=== PATIENT | female | born 1965 | race Caucasian/White ===

== ENCOUNTER 2021-06-12 12:33 | Inpatient (IN) | payer MEDICARE, MEDICAID, SELFPAY ==
--- NOTE | ~2021-06-12 | XR_ITS ---
EXAMINATION: XR CHEST CLINICAL INFORMATION: Post central line placement COMPARISON: Previous chest x-ray from earlier the same day TECHNIQUE: Frontal view of the chest was obtained. FINDINGS: The cardiac and mediastinal contours are stable. There is a new right jugular line with tip projecting over the SVC. There is no pneumothorax. The lungs are clear. There is no pleural effusion. There is old trauma to the right posterior fifth and sixth ribs. XR/XR chest 1V IMPRESSION: Right jugular line projects over SVC. No pneumothorax.
--- NOTE | ~2021-06-12 | MR_ITS ---
EXAMINATION: MRI OF THE BRAIN WITHOUT CONTRAST CLINICAL INFORMATION: CVA. COMPARISON: CTA of the head and neck 06/12/2021. TECHNIQUE: MRI of the brain was obtained using routine sequences without contrast. FINDINGS: No diffusion abnormalities are identified to suggest an acute or subacute infarct. No mass effect or midline shift is seen. The ventricles and sulci appear normal. Brain parenchymal signal is unremarkable. No extra-axial fluid collections are seen. The brainstem appears normal. No pathologic magnetic susceptibility artifact is identified on the gradient refocused acquisition. The cerebellar tonsillar tips extend down to the level of the foramen magnum, but have normal contours. The major intracranial flow-voids at the level of the [place] are preserved. The dural venous sinus flow-voids are maintained. The mastoid air cells are well-aerated. There is a small retention cysts in the inferior left maxillary sinus. There is mild there is a posterior thickening the anterior ethmoid sinuses bilaterally. MR/MR head/brain wo con IMPRESSION: 1. There are no acute bleeds or infarcts, and no masses are demonstrated.
--- NOTE | ~2021-06-12 | CT_ITS ---
CT ANGIOGRAM NECK WITH CONTRAST CT ANGIOGRAM BRAIN WITH CONTRAST CLINICAL INFORMATION: Right-sided weakness. COMPARISON: Head CT 06/12/2021. TECHNIQUE: Test bolus sequences followed by intravenous administration 70 mL of Omnipaque 350. Helical imaging was performed in the axial plane from the thoracic inlet to the skull vertex. Delayed postcontrast imaging of the head was also performed. The data was processed at the nuclear medicine chief technologist workstation for generation of MIP sequences. Angled MIPs and volume rendered reformatted images were also generated at an offline 3D workstation under concurrent supervision. Stenoses are assessed in accordance with NASCET criteria unless otherwise indicated. This CT examination was performed using dose optimization techniques as appropriate, variously including the following: *Automated exposure control *Adjustment of mA and/or kV according to patient size (this includes techniques or standardized protocols for targeted exams where dose is matched to indication/reason for exam; i.e. extremities or head) *Use of iterative reconstruction technique FINDINGS: BRAIN: There is a suspected acute infarct within the left ventral tenzin best seen on image 44 of series 5 that would be better assessed with MRI. No large territorial infarcts. [There is no intracranial hemorrhage, hydrocephalus, extra-axial surface collection, midline shift, or other herniation pattern. Wiggins to white matter differentiation is diffusely maintained without evidence of an evolved acute territorial infarct. The basilar cisterns are preserved. No significant soft tissue abnormality. No acute osseous abnormality. The paranasal sinuses and the mastoid air cells are well aerated.] CERVICAL SOFT TISSUES AND LUNG APICES: [Old healed posterior right fifth rib fracture. Imaged lungs are clear. There is cervical spondylosis. No significant soft tissue findings within the neck. Partially imaged right IJ venous catheter. NECK CTA: [There is a classic 3 vessel configuration of the aortic arch. Proximal arch vessels are non-stenotic. The vertebral arteries are codominant. No significant ostial stenosis is visualized on either side. Both vertebral arteries are widely patent throughout their extracranial cervical course. Both common carotid arteries are normal in course and caliber.] There is lipid rich and calcific atherosclerotic plaque involving the proximal right internal carotid artery with a few shallow penetrating atherosclerotic ulcers. Less than 50% stenosis. Lipid rich and calcific atherosclerotic plaque result in a less than 50% stenosis of the proximal left cervical ICA. Cervical internal carotid arteries remain widely patent. BRAIN CTA: [There is normal opacification of major intracranial arteries. No focal flow-limiting stenosis nor discrete proximal large artery occlusion. No aneurysm. Timing of the contrast bolus allows assessment of the major dural venous sinuses, which all opacify normally] CT/CT angio head neck stroke IMPRESSION: - There is a suspected acute infarct within the left ventral tenzin best seen on image 44 of series 5 that would be better assessed with MRI. No large territorial infarcts and no intracranial hemorrhage. - No acute arterial occlusions and no significant arterial stenoses within the head or neck. There are a few penetrating atherosclerotic ulcers involving the right carotid bulb. Findings discussed with Dr. Munoz at 4:37 PM on 06/12/2021.
--- NOTE | ~2021-06-12 | CT_ITS ---
EXAMINATION: CT HEAD WITHOUT CONTRAST (STROKE PROTOCOL) CLINICAL INFORMATION: Stroke protocol. Right-sided defect COMPARISON: November 14, 2010 TECHNIQUE: Contiguous axial imaging was performed from the skull base to vertex without intravenous administration of contrast. This CT examination was performed using dose optimization techniques as appropriate, variously including the following: *Automated exposure control *Adjustment of mA and/or kV according to patient size (this includes techniques or standardized protocols for targeted exams where dose is matched to indication/reason for exam; i.e. extremities or head) *Use of iterative reconstruction technique DLP: 768 mGy-cm FINDINGS: There is no intracranial hemorrhage, hematoma, or extra-axial fluid collection. The ventricles are normal in size. There is no hydrocephalus, edema, or mass effect. The plata-white matter differentiation appears symmetric. There is no acute infarct or mass lesion. The calvarium appears intact. There is no pneumocephalus or orbital emphysema. The visualized sinuses and middle ears and mastoid air cells show no significant mucosal thickening. There are no air-fluid levels. CT/CT head for stroke IMPRESSION: No acute intracranial pathology. This critical result was discussed with Bernice Morales at 1420 p.m. hours on June 12, 2021. It was ascertained that the content and urgency of the report was understood at the time of direct communication.
--- NOTE | ~2021-06-12 | XR_ITS ---
EXAMINATION: XR CHEST CLINICAL INFORMATION: Stroke symptoms COMPARISON: None TECHNIQUE: Frontal view of the chest was obtained. FINDINGS: The lungs are well-expanded but clear. The heart size and pulmonary vascularity is normal. There are healed rib fractures right posterior fifth and sixth ribs. No other bony abnormality seen. The soft tissues are normal. XR/XR chest 1V IMPRESSION: No acute cardiopulmonary process seen.
--- NOTE | 2021-06-12 12:38 | PC.NURSE ---
charge nurse contacted and made aware of patient condition and patient's last known well time. awaiting bed to be cleared
[2021-06-12 12:39] VITALS: BP 153/112; PULSE 130; RESP 19; TEMP 36.9; O2SAT 98; BMI 33.7
--- NOTE | 2021-06-12 12:46 | ECG_ITS ---
Test Reason : stroke symptoms Blood Pressure : / mmHG Vent. Rate : 078 BPM Atrial Rate : 078 BPM P-R Int : 158 ms QRS Dur : 078 ms QT Int : 446 ms P-R-T Axes : 040 022 066 degrees QTc Int : 508 ms Normal sinus rhythm ST & T wave abnormality, consider anterior ischemia Prolonged QT Abnormal ECG When compared with ECG of 25-APR-2011 08:12, ST now depressed in Anterior leads Nonspecific T wave abnormality no longer evident in Inferior leads T wave inversion more evident in Anterior leads Referred By: Bernice Morales Electronically Signed By:ELPIDIO MORALES MD
--- NOTE | 2021-06-12 13:04 | ED.NEUROSD ---
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 Onset (ago): day(s) Location: right arm and right leg Severity: moderate Quality: weak and numb Context: sudden onset Associated symptoms: weakness Related Data Home Medications Medication Instructions Recorded Confirmed No Known Home Meds 06/12/21 06/12/21 Allergies Allergy/AdvReac Type Severity Reaction Status Date / Time Penicillins Allergy Severe THROAT Unverified 12/08/19 15:26 SWELLS, RASH amoxicillin Allergy Mild RASH Unverified 12/08/19 15:26 morphine [MORPHINE] Allergy Unknown HEADACHES Unverified 12/08/19 15:26 penicillin V Allergy Unknown facial Unverified 11/03/18 00:00 swelling Review of Systems Constitutional: Constitutional: Reports no additional constitutional complaints Eyes: Eyes: Reports no additional eye complaints ENT: Denies dizziness Cardiovascular: Cardiovascular: Reports no additional cardiovascular complaints Respiratory: Respiratory: Reports as per HPI Gastrointestinal: Gastrointestinal: Reports no additional gastrointestinal complaints Genitourinary: Genitourinary: Reports no additional female genitourinary complaints Musculoskeletal: Musculoskeletal: Reports no additional musculoskeletal complaints Integumentary/Breasts: Skin/Breast: Denies rash Neurologic: Reports system reviewed and no additional complaints, except as documented, Denies dizziness and Denies Sensory deficit (Neuro) Psychiatric: Psychiatric: Denies anxiety [facility] Social History Social History (Updated 06/12/21 @ 17:33 by Eduin Rodriguez MD) Household Members: Spouse Housing: House Do you presently have visiting nurse or other home services: No Alcohol intake: former Patient Tobacco Use Status: Current everyday Tobacco user Tobacco use type: Cigarette Cigarettes Per Day: 2 Second Hand Smoke Exposure: No Physical Exam Vital Signs: Vital Signs: Last Vital Signs Temp 98.7 F 06/12/21 17:30 Pulse 80 06/12/21 17:30 Resp 16 06/12/21 17:30 BP 154/91 H 06/12/21 17:30 Pulse Ox 94 06/12/21 17:30 BMI result Body Mass Index 33.7 Const: General: healthy appearing Nutritional Appearance: average body habitus Orientation/consciousness: oriented to person and patient oriented x3 Limitations: no limitations HEENT: Head: Yes normal to inspection Ears: external ears normal General nose exam: Normal external nose present Mouth: Normal oral and palatal mucosa present and oropharynx normal Throat: Yes posterior oropharynx normal Eyes: General: appearance normal, both eyes and all related structures Neck: Other: supple Neck: Yes normal visual inspection Chest: Chest palpation & inspection: normal inspection of the chest Resp: Auscultation: clear to auscultation bilaterally Cardio: Jugular venous distension: no JVD Rate: regular rate Rhythm: regular rhythm Heart sounds: S1 normal heart sound present and S2 normal heart sound present GI: Inspection: Yes normal to inspection Palpation (GI): Soft to palpation, nontender and No hepatosplenomegaly present Auscultation: normal bowel sounds : General: Yes no CVA tenderness Back/Spine/Pelvis: Back: no CVA tenderness Skin: General skin exam: no rashes or lesions noted Neuro: Other: right facial, right arm with drift, right leg with drift General: oriented to person and patient oriented x3 Sensory Exam: No Sensory deficit (Neuro) Extrem: General: Yes normal to inspection Psych: Appearance: grossly normal Course Reevaluation(s) Reevaluation #1: Patient with signs and symptoms of stroke, CTA consistent with pontine infarct, EKG shows anterior ischemia, Dr Bah consulted bedside echo complete will admit to telemetry Procedures Procedure Narrative Procedure Narrative: ultrasound peripheral 18g IV placed left briachail Central Line Placement Right IJ: Additional Comments: Proper hand hygiene, cap, gown and sterile gloves place worn. Patient prepped and draped in sterile fashion, 1% lidocaine used for anesthesia, sterile US cover used, central line placed using US. Central line 16cm at the neck. Sutured in place MDM - Neuro Symptoms/Deficit Lab Data Result diagrams: 06/12/21 13:05 06/12/21 15:49 Labs: Lab Results 06/12/21 06/12/21 06/12/21 Range/Units 11:00 12:49 13:05 WBC 7.6 (4.8-10.8) X10*3/uL RBC 4.90 (4.20-5.50) X10*6/uL Hgb 16.3 H (12.0-16.0) g/dl Hct 47.7 H (37.0-47.0) % MCV 97.3 (80.0-98.0) fL MCH 33.3 H (27.0-33.0) pg MCHC 34.2 (31.0-35.0) g/dl RDW 12.2 (11.0-16.0) % Plt Count 135 L (160-400) X10*3/uL MPV 11.1 (9.4-12.3) fL Immature Gran % (Auto) 0.3 (0.0-0.4) % Neut % (Auto) 60.5 (45-73) % Lymph % (Auto) 27.0 (20-40) % [place] % (Auto) 9.0 (2-11) % Eos % (Auto) 2.8 (0-4) % Baso % (Auto) 0.4 (0-2) % Lymph # (Auto) 2.0 (1.2-4.9) X10*3/uL [place] # (Auto) 0.7 (0.1-1.2) X10*3/uL Eos # (Auto) 0.2 (0.0-0.4) X10*3/uL Baso # (Auto) 0.0 (0.0-0.2) X10*3/uL Abs Immat Gran (auto) 0.02 (0.00-0.03) X10*3/uL Absolute Neuts (auto) 4.6 (2.0-8.3) x10*3/uL Absolute Nucleated RBC 0.000 (0.0-0.012) X10*3/uL Nucleated RBC % (auto) 0.0 (0.0-0.2) /100WBC Smear Tech's Comments VERIFIED PT (9.9-13.0) SEC INR (0.9-1.1) APTT (24.1-38.0) SEC Sodium (135-145) mmol/L Potassium (3.3-5.1) mmol/L Chloride (96-108) mmol/L Carbon Dioxide (22-29) mmol/L Anion Gap (12-20) BUN (9-16) mg/dL Creatinine (0.5-1.4) mg/dL Estim Creat Clear Calc Estimated GFR Random Glucose (60-115) mg/dL Calcium (8.4-10.2) mg/dL Magnesium (1.6-2.6) mg/dL Total Bilirubin (0.0-1.0) mg/dL Direct Bilirubin (0.0-0.5) mg/dL AST (5-31) U/L ALT (0-31) U/L Alkaline Phosphatase (39-117) U/L Troponin I High Sens (<3.5-17.0) ng/L Total Protein (6.5-8.0) g/dL Albumin (3.5-5.0) g/dL TSH (0.32-4.0) uIU/mL Urine Color YELLOW Urine Appearance CLEAR Urine pH 5.5 (5.0-8.0) Ur Specific [place] >= 1.030 H (1.005-1.025) Urine Protein 2+ H (NEG-TRACE) MG/DL Urine Glucose (UA) NEG (NEG) MG/DL Urine Ketones NEG (NEG) MG/DL Urine Blood NEG (NEG) Urine Nitrite NEG (NEG) Ur Leukocyte Esterase NEG (NEG) Urine RBC 0-2 (0) /HPF Urine WBC 0-2 (0-4) /HPF Ur Squamous Epith Cells 1+ /LPF Urine Bacteria NONE /LPF COVID-19 (ASHLEE) Negative (Negative) COVID-19 Clin Com See Note 06/12/21 06/12/21 06/12/21 Range/Units 13:05 13:05 15:49 WBC (4.8-10.8) X10*3/uL RBC (4.20-5.50) X10*6/uL Hgb (12.0-16.0) g/dl Hct (37.0-47.0) % MCV (80.0-98.0) fL MCH (27.0-33.0) pg MCHC (31.0-35.0) g/dl RDW (11.0-16.0) % Plt Count (160-400) X10*3/uL MPV (9.4-12.3) fL Immature Gran % (Auto) (0.0-0.4) % Neut % (Auto) (45-73) % Lymph % (Auto) (20-40) % [place] % (Auto) (2-11) % Eos % (Auto) (0-4) % Baso % (Auto) (0-2) % Lymph # (Auto) (1.2-4.9) X10*3/uL [place] # (Auto) (0.1-1.2) X10*3/uL Eos # (Auto) (0.0-0.4) X10*3/uL Baso # (Auto) (0.0-0.2) X10*3/uL Abs Immat Gran (auto) (0.00-0.03) X10*3/uL Absolute Neuts (auto) (2.0-8.3) x10*3/uL Absolute Nucleated RBC (0.0-0.012) X10*3/uL Nucleated RBC % (auto) (0.0-0.2) /100WBC Smear Tech's Comments PT 13.9 H (9.9-13.0) SEC INR 1.2 H (0.9-1.1) APTT 25.6 (24.1-38.0) SEC Sodium 136 (135-145) mmol/L Potassium 4.0 (3.3-5.1) mmol/L Chloride 101 (96-108) mmol/L Carbon Dioxide 27 (22-29) mmol/L Anion Gap 12 (12-20) BUN 10 (9-16) mg/dL Creatinine 0.85 (0.5-1.4) mg/dL Estim Creat Clear Calc 82.7 Estimated GFR > 60 Random Glucose 145 H (60-115) mg/dL Calcium 9.7 (8.4-10.2) mg/dL Magnesium 2.1 (1.6-2.6) mg/dL Total Bilirubin 0.6 (0.0-1.0) mg/dL Direct Bilirubin 0.2 (0.0-0.5) mg/dL AST 153 H (5-31) U/L ALT 107 H (0-31) U/L Alkaline Phosphatase 97 (39-117) U/L Troponin I High Sens < 3.5 (<3.5-17.0) ng/L Total Protein 7.8 (6.5-8.0) g/dL Albumin 4.0 (3.5-5.0) g/dL TSH 1.69 (0.32-4.0) uIU/mL Urine Color Urine Appearance Urine pH (5.0-8.0) Ur Specific [place] (1.005-1.025) Urine Protein (NEG-TRACE) MG/DL Urine Glucose (UA) (NEG) MG/DL Urine Ketones (NEG) MG/DL Urine Blood (NEG) Urine Nitrite (NEG) Ur Leukocyte Esterase (NEG) Urine RBC (0) /HPF Urine WBC (0-4) /HPF Ur Squamous Epith Cells /LPF Urine Bacteria /LPF COVID-19 ([facility]LEE) (Negative) COVID-19 Clin Com 06/12/21 06/12/21 Range/Units 15:49 16:01 WBC (4.8-10.8) X10*3/uL RBC (4.20-5.50) X10*6/uL Hgb (12.0-16.0) g/dl Hct (37.0-47.0) % MCV (80.0-98.0) fL MCH (27.0-33.0) pg MCHC (31.0-35.0) g/dl RDW (11.0-16.0) % Plt Count (160-400) X10*3/uL MPV (9.4-12.3) fL Immature Gran % (Auto) (0.0-0.4) % Neut % (Auto) (45-73) % Lymph % (Auto) (20-40) % [place] % (Auto) (2-11) % Eos % (Auto) (0-4) % Baso % (Auto) (0-2) % Lymph # (Auto) (1.2-4.9) X10*3/uL [place] # (Auto) (0.1-1.2) X10*3/uL Eos # (Auto) (0.0-0.4) X10*3/uL Baso # (Auto) (0.0-0.2) X10*3/uL Abs Immat Gran (auto) (0.00-0.03) X10*3/uL Absolute Neuts (auto) (2.0-8.3) x10*3/uL Absolute Nucleated RBC (0.0-0.012) X10*3/uL Nucleated RBC % (auto) (0.0-0.2) /100WBC Smear Tech's Comments PT (9.9-13.0) SEC INR (0.9-1.1) APTT (24.1-38.0) SEC Sodium (135-145) mmol/L Potassium (3.3-5.1) mmol/L Chloride (96-108) mmol/L Carbon Dioxide (22-29) mmol/L Anion Gap (12-20) BUN (9-16) mg/dL Creatinine (0.5-1.4) mg/dL Estim Creat Clear Calc Estimated GFR Random Glucose (60-115) mg/dL Calcium (8.4-10.2) mg/dL Magnesium (1.6-2.6) mg/dL Total Bilirubin (0.0-1.0) mg/dL Direct Bilirubin (0.0-0.5) mg/dL AST (5-31) U/L ALT (0-31) U/L Alkaline Phosphatase (39-117) U/L Troponin I High Sens 3.8 (<3.5-17.0) ng/L Total Protein (6.5-8.0) g/dL Albumin (3.5-5.0) g/dL TSH Cancelled (0.32-4.0) uIU/mL Urine Color Urine Appearance Urine pH (5.0-8.0) Ur Specific [place] (1.005-1.025) Urine Protein (NEG-TRACE) MG/DL Urine Glucose (UA) (NEG) MG/DL Urine Ketones (NEG) MG/DL Urine Blood (NEG) Urine Nitrite (NEG) Ur Leukocyte Esterase (NEG) Urine RBC (0) /HPF Urine WBC (0-4) /HPF Ur Squamous Epith Cells /LPF Urine Bacteria /LPF COVID-19 ([facility]LEE) (Negative) COVID-19 Clin Com Imaging Data CT scan - head: Radiologist's impression: FINDINGS: There is no intracranial hemorrhage, hematoma, or extra-axial fluid collection.? The ventricles are normal in size. There is no hydrocephalus, edema, or mass effect.? The plata-white matter differentiation appears symmetric. There is no acute infarct or mass lesion. The calvarium appears intact. There is no pneumocephalus or orbital emphysema.? The visualized sinuses and middle ears and mastoid air cells show no significant mucosal thickening. There are no air-fluid levels. CT/CT head for stroke IMPRESSION: No acute intracranial pathology. ? This critical result was discussed with Bernice Morales at 1420 p.m. hours on June 12, 2021. It was ascertained that the content and urgency of the report was understood at the time of direct communication. CT angio head and neck: Radiologist's impression: left pontine infarct ECG Data Attestation: I personally reviewed and interpreted this ECG as follows: Interpretation: sinus 80, severe anterior septal flipped ts consistent with ischemia NIH Stroke Scale Internal: Initial- Upon Arrival Level of Consciousness: Alert Level of Consciousness Questions: Answers both questions correctly Level of Consciousness Commands: Performs both tasks correctly Best Gaze: Normal Visual: No visual loss Facial Palsy: Minor paralyis Motor Arm (Right): Drift Motor Arm (Left): No drift Motor Leg (Right): Some effort against gravity Motor Leg (Left): No drift Limb Ataxia: Absent Sensory: Mild to moderate sensory loss Best Language: No aphasia Dysarthia: Normal Extinction and Inattention: No abnormality Score: 5 Critical Care Time Critical Care Time Attestation: I spent 60 minutes of critical care, with interventions, assessments, speaking to patient, consultants, and family. Discharge Plan Discharge Clinical Impression: Cerebrovascular accident, Acute electrocardiogram changes Patient Disposition: Admitted As Inpatient Interventions: Admission Worksheet (ED) Last Done: 06/12/21 18:36 Discharge Date/Time: 06/12/21 18:37
[2021-06-12 13:12] LABS: Basophils Percent Auto 0.4 % (0-2); Eosinophils Absolute Auto 0.2 X10*3/uL (0.0-0.4); Eosinophils Percent Auto 2.8 % (0-4); Hematocrit 47.7 % (37.0-47.0); Hemoglobin 16.3 g/dl (12.0-16.0); Imm Gran Abs Auto 0.02 X10*3/uL (0.00-0.03); Imm Gran Pct Auto 0.3 % (0.0-0.4); MANUAL DIFF FLAG SCAN; Mean Corpuscular HGB Conc 34.2 g/dl (31.0-35.0); Mean Corpuscular Hemoglobin 33.3 pg (27.0-33.0); Mean Corpuscular Volume 97.3 fL (80.0-98.0); Mean Platelet Volume 11.1 fL (9.4-12.3); Monocytes Absolute Auto 0.7 X10*3/uL (0.1-1.2); Neutrophils Absolute Auto 4.6 x10*3/uL (2.0-8.3); Neutrophils Percent Auto 60.5 % (45-73); PLT CLUMP 1; Red Cell Distribution Width 12.2 % (11.0-16.0); SCAN SMEAR FLAG 1
[2021-06-12 13:28] LABS: White Blood Count 7.6 X10*3/uL (4.8-10.8)
[2021-06-12 13:29] LABS: Platelet Count 135 X10*3/uL (160-400); SLIDE REVIEW VERIFIED; Troponin-I High Sensitivity < 3.5 ng/L (<3.5-17.0)
[2021-06-12 13:30] LABS: INTERNATIONAL NORM RATIO 1.2 (0.9-1.1); Prothrombin Time 13.9 SEC (9.9-13.0)
[2021-06-12 13:33] LABS: Partial Thromboplastin Time 25.6 SEC (24.1-38.0)
--- NOTE | 2021-06-12 14:21 | PC.NURSE ---
Pt difficult IV stick, ultrasound IV placed infiltrated in CT, Dr Munoz attempting to ultrasound IV in CT at this time
--- NOTE | 2021-06-12 15:00 | CA_ITS ---
Transthoracic Echocardiogram Limited Patient (Last, First, Middle): Dulce Lynch A Gender: Female Date of : 1965 Age: 55 Procedure Date: 06/12/2021 Procedure Type: Transthoracic Echocardiogram Limited Location: ER Height: 165.1 cm Weight: 91.63 kg BSA: 1.99 m2 Heart Rate: bpm BP: 153 / 112 mmHg Hydrogeologist: Referring MD: Oh Bah MD Symptoms: abnormal EKG, Chest Pain, RWMA? Study Quality: Fair ECG Rhythm: Sinus Conclusions: - Limited study. - Normal left ventricular cavity size. There is mildly increased left ventricular wall thickness. The left ventricular systolic function is hyperdynamic. The visually estimated ejection fraction is >70%. - Normal right ventricular cavity size and systolic function. Findings Left Ventricle Normal left ventricular cavity size. There is mildly increased left ventricular wall thickness. The left ventricular systolic function is hyperdynamic. The visually estimated ejection fraction is >70%. There is no evidence of regional wall motion abnormalities. Abnormal diastolic function is noted. Spectral Doppler is indicative of an impaired relaxation filling pattern. E/E prime ratio is <8, consistent with normal filling pressures. Right Ventricle Normal right ventricular cavity size and systolic function. Venous The inferior vena cava is normal in size and collapses greater than 50% with inspiration. Pericardium/Pleural There is no evidence of pericardial effusion. Prior Study Comparison No prior study available for comparison. Measurements 2D Linear Measurements IVSd: 1.14 0.6-0.9/0.6-1.0 cm LVIDd: 3.45 3.9-5.3/4.2-5.9 cm LVIDd Index: 1.73 2.4-3.2/2.2-3.1 cm/m2 LVIDs: 2.08 2.0-3.6 cm LVPWd: 1.17 0.7-1.1 cm LV Mass: 156.04 67-162/88-224 g LV Mass Index: 78.41 43-95/49-115 g/m2 Mitral Valve MV Pk E: 0.62 MV PK A: 0.84 MV Decel Time: 173.00 E/A: 0.70 E'Lateral: 6.96 E'Medial: 3.92 E/E' Med: 15.80 E/E' Lat: 8.90 PHT: 51.00 MVA PHT: 4.31 Decel Kerr: 3.58 Diastolic Function MV Pk E: 0.62 MV Pk A: 0.84 E/A: 0.70 E'Medial: 3.92 E/E' Med: 15.80 E' Laterial: 6.96 E/E' Lat: 8.90 Updated in Other Vendor System with Status of Final Oh Bah MD electronically signed on 06/12/2021 7:10:53 PM with status of Final
[2021-06-12 16:13] LABS: COVID-19 Test Negative (Negative); IDNOW Serial# 55D5AD1C
[2021-06-12 16:24] LABS: Appearance Urine CLEAR; Color Urine YELLOW; Glucose Urine UA NEG (NEG); Leukocyte Esterase Urine NEG (NEG); Nitrite Urine NEG (NEG); PH 5.5 (5.0-8.0); Specific Gravity - Urine >= 1.030 (1.005-1.025); UACC Culture Trigger NO; Urine Blood NEG (NEG); Urine Ketones NEG (NEG); Urine Protein 2+ MG/DL (NEG-TRACE)
[2021-06-12 16:28] LABS: Alanine Aminotransferase 107 U/L (0-31); Alkaline Phosphatase 97 U/L (39-117); Anion Gap 12 (12-20); Aspartate Amino Transferase 153 U/L (5-31); Bilirubin Direct 0.2 mg/dL (0.0-0.5); Bilirubin Total 0.6 mg/dL (0.0-1.0); Blood Urea Nitrogen 10 mg/dL (9-16); Calcium 9.7 mg/dL (8.4-10.2); Carbon Dioxide 27 mmol/L (22-29); Chloride 101 mmol/L (96-108); Creatinine Clr Calc Pharmacy 82.7; Estimated Glomerular Filt Rate > 60; Glucose Random 145 mg/dL (60-115); Magnesium 2.1 mg/dL (1.6-2.6); Sodium 136 mmol/L (135-145); Total Protein 7.8 g/dL (6.5-8.0)
--- NOTE | 2021-06-12 16:28 | MHC.STROKE ---
Addendum entered by Sana Cheng RN 06/13/21 14:12: MRI REVEALED NO ACUTE STROKE, I RELAYED THIS INFORMATION TO DR LEE, SHE CAN BE DISCHARGED FROM NEURO PERSPECTIVE. dR MAXWELL AND RN ALSO NOTIFIED OF THIS RESULT. Original Note: [id number] Notified via tigertext from Dr. Munoz of a Stroke Protocol activation. Symptom onset Thursday06/09/21, NIHSS = 5, right face, arm leg and sensory deficit. CT head and CTA H/N ordered. Poor IV access therefore central line place by Dr. Munoz and KETTLE COORDINATOR Lance. CTA H/N done at 1615, results pending. She passed nursing swallow screen, Bedside Echo being done. I will continue to follow.
[2021-06-12 16:30] LABS: Troponin-I High Sensitivity 3.8 ng/L (<3.5-17.0)
[2021-06-12] MEDS: iohexoL 350 MG/ML 100 ML INFUS..BTL IV (16:31)
[2021-06-12 16:34] LABS: RBC Urine 0-2 /HPF (0); Squamous Epithelial Cell Urine 1+ /LPF; WBC Urine 0-2 /HPF (0-4)
[2021-06-12 17:00] LABS: TSH reflex Free T4 1.69 uIU/mL (0.32-4.0)
--- NOTE | 2021-06-12 17:13 | ECG_ITS ---
Test Reason : REPEAT FOR ISCHEMIC EKG Blood Pressure : / mmHG Vent. Rate : 083 BPM Atrial Rate : 083 BPM P-R Int : 164 ms QRS Dur : 076 ms QT Int : 426 ms P-R-T Axes : 042 021 056 degrees QTc Int : 500 ms Normal sinus rhythm T wave abnormality, consider anterolateral ischemia Prolonged QT Abnormal ECG When compared with ECG of 12-JUN-2021 14:49, No significant change was found Referred By: Regulo Munoz Electronically Signed By:ELPIDIO MORALES MD
[2021-06-12] MEDS: Aspirin Enteric Coated 325 MG TABLET.DR PO (17:21)
[2021-06-12] MEDS: LORazepam 2 MG/ML VIAL 1 MG IVPUSH (17:21)
--- NOTE | 2021-06-12 17:22 | P.HPHOSP_ITS ---
History of Present Illness Date of Service: 06/12/21 Attending physician on admission: Eduin Rodriguez Chief Complaint: right-sided numbness /weakness with aphasia 55-year-old female patient with past medical history significant for anxiety depression chronic back pain status post discectomy in 2005, history of chronic abdominal pain, gastritis due tinnitus, presented to [facility] with 4 days of right sided numbness and weakness according to patient symptoms started last Thursday with numbness of fingers later involving entire right-side,she felt every muscle of her right-side is tight so she use heating pad ,she felt its flare of her back pain, also had word-finding difficulty and had difficulty with ambulating so mostly stayed in bed, she ambulated short distances holding onto furniture since symptoms persisted she came to the emergency room, workup in ED showed unremarkable CT head , EKG showed ST changes in anterior leads, with normal troponin with no symptoms of chest pain or palpitations, she was noted to have elevated blood pressure 153/112 and pulse 130 on arrival, CTA head and neck was concering for suspected acute infarction left ventral tenzin, patient is now being admitted to [facility] due to right-sided numbness weakness with concern for acute infarction. Review of Systems Review of Systems: General no headache, no dizziness no fever chills. CVS no chest pain, no palpitation. Respiratory no cough, no sputum production no respiratory distress. Gastrointestinal no nausea, no vomiting, no abdominal pain musculoskeletal back pain skin no rash no urinary frequency, no urgency Yes all other systems are reviewed and are negative PMFSH Pertinent family history: mother is alive and healthy, father has multiple cancers including prostate stomach and skin, history of heart problems and maternal grandfather Social History (Updated 06/12/21 @ 17:33 by Eduin Rodriguez MD) Alcohol intake: former Patient Tobacco Use Status: Current everyday Tobacco user Advance Directives: No Advance Directives Information Provided: No Meds Allergies Allergy/AdvReac Type Severity Reaction Status Date / Time Penicillins Allergy Severe THROAT Unverified 12/08/19 15:26 SWELLS, RASH amoxicillin Allergy Mild RASH Unverified 12/08/19 15:26 morphine [MORPHINE] Allergy Unknown HEADACHES Unverified 12/08/19 15:26 penicillin V Allergy Unknown facial Unverified 11/03/18 00:00 swelling Active Medications: Current Medications Acetaminophen (Acetaminophen 325 Mg Tablet) 650 mg PO Q6H PRN PRN Reason: Pain, Mild (Pain Scale 1-3) Enoxaparin Sodium (Enoxaparin Sodium 40 Mg/0.4 Ml Syringe) 40 mg SUBCUT Q24H [facility] Melatonin (Melatonin 3 Mg Tablet) 6 mg PO BEDTIME PRN PRN Reason: Insomnia Ondansetron HCl (Ondansetron Hcl 4 Mg/2 Ml Vial) 4 mg IVPUSH Q8H PRN PRN Reason: Nausea and Vomiting Sodium Chloride (0.9 % Sodium Chloride Flush 3 Ml Syringe) 3 ml IVFLUSH QSHIFT [facility] Home Medications Medication Instructions Recorded Confirmed Last Taken Type No Known Home Meds 06/12/21 06/12/21 Unknown History Physical Exam Vital Signs and Narrative: Vital Signs: Last Vital Signs Temp 98.4 F 06/12/21 12:39 Pulse 130 H 06/12/21 12:39 Resp 19 06/12/21 12:39 BP 153/112 H 06/12/21 12:39 Pulse Ox 98 06/12/21 12:39 BMI result Body Mass Index 33.7 Const: Other: General awake alert x3, in no acute distress. HEENT pupils equal round reactive to light and accommodation Neck supple no JVD. CVS regular rate rhythm, Respiratory lungs clear to auscultation, no respiratory distress, no wheeze, no rhonchi. Gastrointestinal abdomen soft, nontender, bowel sounds audible, no guarding , no rigidity. Extremities no edema. Neuro speech clear, able to lift right arm against gravity, resistant to smile, no effort in raising eyebrows, normal tone both right upper and lower extremity. Skin no rash psych appropriate affect Results Labs CBC and Chem 7: 06/12/21 13:05 06/12/21 15:49 Labs: Laboratory Results - last 24 hr 06/12/21 06/12/21 06/12/21 11:00 12:49 13:05 MCV 97.3 MCH 33.3 H MCHC 34.2 RDW 12.2 Plt Count 135 L MPV 11.1 Immature Gran % (Auto) 0.3 Neut % (Auto) 60.5 Lymph % (Auto) 27.0 Mcleod % (Auto) 9.0 Eos % (Auto) 2.8 Baso % (Auto) 0.4 Lymph # (Auto) 2.0 Mcleod # (Auto) 0.7 Eos # (Auto) 0.2 Baso # (Auto) 0.0 Abs Immat Gran (auto) 0.02 Absolute Neuts (auto) 4.6 Absolute Nucleated RBC 0.000 Nucleated RBC % (auto) 0.0 Smear Tech's Comments VERIFIED PT INR APTT Anion Gap Estim Creat Clear Calc Estimated GFR Random Glucose Calcium Magnesium Total Bilirubin Direct Bilirubin AST ALT Alkaline Phosphatase Total Protein Albumin TSH Urine Color YELLOW Urine Appearance CLEAR Urine pH 5.5 Ur Specific [place] >= 1.030 H Urine Protein 2+ H Urine Glucose (UA) NEG Urine Ketones NEG Urine Blood NEG Urine Nitrite NEG Ur Leukocyte Esterase NEG Urine RBC 0-2 Urine WBC 0-2 Ur Squamous Epith Cells 1+ Urine Bacteria NONE COVID-19 (ASHLEE) Negative COVID-19 Clin Com See Note 06/12/21 06/12/21 06/12/21 13:05 15:49 15:49 MCV MCH MCHC RDW Plt Count MPV Immature Gran % (Auto) Neut % (Auto) Lymph % (Auto) Mcleod % (Auto) Eos % (Auto) Baso % (Auto) Lymph # (Auto) Mcleod # (Auto) Eos # (Auto) Baso # (Auto) Abs Immat Gran (auto) Absolute Neuts (auto) Absolute Nucleated RBC Nucleated RBC % (auto) Smear Tech's Comments PT 13.9 H INR 1.2 H APTT 25.6 Anion Gap 12 Estim Creat Clear Calc 82.7 Estimated GFR > 60 Random Glucose 145 H Calcium 9.7 Magnesium 2.1 Total Bilirubin 0.6 Direct Bilirubin 0.2 AST 153 H ALT 107 H Alkaline Phosphatase 97 Total Protein 7.8 Albumin 4.0 TSH 1.69 Cancelled Urine Color Urine Appearance Urine pH Ur Specific [place] Urine Protein Urine Glucose (UA) Urine Ketones Urine Blood Urine Nitrite Ur Leukocyte Esterase Urine RBC Urine WBC Ur Squamous Epith Cells Urine Bacteria COVID-19 ([facility]LEE) COVID-19 Clin Com Imaging Radiologist's Impressions: Impressions Chest X-Ray 06/12/21 13:40 IMPRESSION: No acute cardiopulmonary process seen. Head CT 06/12/21 14:05 IMPRESSION: No acute intracranial pathology. This critical result was discussed with Bernice Morales at 1420 p.m. hours on June 12, 2021. It was ascertained that the content and urgency of the report was understood at the time of direct communication. Chest X-Ray 06/12/21 16:06 IMPRESSION: Right jugular line projects over SVC. No pneumothorax. Head/Neck CTA 06/12/21 16:21 IMPRESSION: - There is a suspected acute infarct within the left ventral tenzin best seen on image 44 of series 5 that would be better assessed with MRI. No large territorial infarcts and no intracranial hemorrhage. - No acute arterial occlusions and no significant arterial stenoses within the head or neck. There are a few penetrating atherosclerotic ulcers involving the right carotid bulb. Findings discussed with Dr. Munoz at 4:37 PM on 06/12/2021. Assessment and Plan (1) Right sided weakness: Status: Acute (2) Acute electrocardiogram changes: Status: Acute Plan 55-year-old female with multiple medical issues including chronic abdominal pain, chronic back pain, history of gastritis, history of alcoholic pancreatitis stop drinking alcohol 20 years ago history of gastritis due tonight is, presented to [facility] with 4 day history of right-sided numbness with expressive aphasia patient initially noted to have elevated blood pressure and pulse in the emergency room, CT head unremarkable, CTA head and neck concerning for suspected left acute ventral tenzin infarction, EKG showed T-wave inversions anterior leads, patient will be admitted to [facility] who continued monitoring and treatment. 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, gait not assessed CT head unremarkable, CT head and neck concerning for suspected acute infarction left ventral tenzin, will obtain neuro consult, for further recommendation including MRI brain obtain PT OT and speech therapy no history of hypertension diabetes or hyperlipidemia , will check lipid profile and hemoglobin A1c start on aspirin 81 mg by mouth daily, give Lipitor follow labs abnormal EKG no chest pain, no palpitation troponin x2 in normal range, echo obtained report pending cardiology consult obtained will repeat EKG chronic back pain use Tylenol as needed tobacco use disorder currently smoking 1 pack a week, counseling done Opioid use disorder urine toxicology pending, continue Suboxone code status full code DVT prophylaxis with Lovenox Q need 2 midnight stay due to right-sided numbness weakness suggestive of acute stroke requiring further workup and abnormal EKG requiring cardiac testing. Quality Stroke Does the patient have a stroke diagnosis?: Yes Reason for No Anti-thrombotic by Day Two: N/A - Med Ordered VTE Prior VTE?: No VTE Risk Level:: Medical - moderate - high VTE Device Contraindication: Treatment Not Indicated VTE Drug Contraindication: N/A - Med Ordered
[2021-06-12] MEDS: Enoxaparin Sodium 40 MG/0.4 ML SYRINGE SUBCUT (17:27)
[2021-06-12] MEDS: Acetaminophen 325 MG TABLET 650 MG PO (17:27)
[2021-06-12 17:30] VITALS: BP 154/91; PULSE 80; RESP 16; TEMP 37.1; O2SAT 94
--- NOTE | 2021-06-12 17:48 | PHA.MEDREC ---
Pharmacy Consult ? Medication Reconciliation Pharmacy has completed the medication reconciliation. PT STATES SHE DOES NOT TAKE ANY MEDS OR VITAMINS
[2021-06-12] MEDS: Atorvastatin Calcium 40 MG TABLET PO (18:31)
[2021-06-12 20:00] VITALS: BP 150/90; PULSE 84; RESP 17; TEMP 36.4; O2SAT 95
[2021-06-12] MEDS: Melatonin 3 MG TABLET 6 MG PO (20:26)
[2021-06-12] MEDS: 0.9 % Sodium Chloride Flush 3 ML SYRINGE IVFLUSH (20:26)
[2021-06-12 23:42] VITALS: BP 141/85; PULSE 74; RESP 18; O2SAT 94
[2021-06-13 00:12] VITALS: BMI 33.0
[2021-06-13 03:40] VITALS: BP 114/63; PULSE 88; RESP 18; TEMP 36.3; O2SAT 94
[2021-06-13 07:56] VITALS: BP 139/63; PULSE 74; RESP 18; TEMP 36.7; O2SAT 93
--- NOTE | 2021-06-13 08:00 | ECG_ITS ---
Test Reason : abn ekg Blood Pressure : / mmHG Vent. Rate : 068 BPM Atrial Rate : 068 BPM P-R Int : 170 ms QRS Dur : 084 ms QT Int : 492 ms P-R-T Axes : 026 017 091 degrees QTc Int : 523 ms Normal sinus rhythm ST & T wave abnormality, consider anterolateral ischemia Prolonged QT Abnormal ECG When compared with ECG of 12-JUN-2021 17:54, No significant change was found Referred By: Eduin Rodriguez Electronically Signed By:ELPIDIO MORALES MD
[2021-06-13 08:20] LABS: Estimated Average Glucose 148 mg/dL; Hemoglobin A1c % 6.8 %
--- NOTE | 2021-06-13 08:50 | MHC.CM.PN ---
CM met with Patient at bedside and addressed IMM with her, providing her with the original and placing a copy on the chart. Patient stated that she was physically unable to sign the IMM but she expressed verbal understanding OF THE DOCUMENT. Patient LIVES IN A HOUSE WITH HER /HCP/Gumaro @ [phone] and she was functionally independent and working at [employer]. pATIRNT IS AGREEABLE TO A REFERRAL TO na, BUT DID NOT WANT cm TO EXPLORE STR OPTIONS JUST YET. CM has initiated and will follow for dc planning. PCP is Dr. Citlali Lr and Patient has received the Covid J&J vax and +Moderna booster.
[2021-06-13] MEDS: 0.9 % Sodium Chloride Flush 3 ML SYRINGE IVFLUSH (09:15)
[2021-06-13] MEDS: Buprenorphine/Naloxone 8/2 mg FILM 1 FILM SUBLINGUAL (09:19)
[2021-06-13] MEDS: Aspirin Enteric Coated 81 MG TABLET.DR PO (09:19)
--- NOTE | 2021-06-13 09:29 | P.CNNE_ITS ---
History of Present Illness Data of Consult Service Date: 06/13/21 Primary Care Provider: OMERO Howard [facility] Reason for consult: Right-sided weakness 55 years old woman I was asked to see for right-sided weakness. When I asked her why she came to hospital she said that she just did not feel well. Previously she has stated right-sided numbness and weakness. Her initial imaging did not reveal any obvious stroke but there was suspicion of a pontine lesion. She denied any recent trauma or cold or flu-like illness or difficulty with speaking or swallowing. Review of Systems Review of Systems: No recent cold or flu-like illness. No speech or difficulty swallowing. No cardiac symptoms. [facility] Social History Social History (Updated 06/12/21 @ 17:33 by Eduin Rodriguez MD) Household Members: Spouse Housing: House Do you presently have visiting nurse or other home services: No Alcohol intake: former Patient Tobacco Use Status: Current everyday Tobacco user Tobacco use type: Cigarette Cigarettes Per Day: 2 Second Hand Smoke Exposure: No service: No Current occupational status: employed Meds Allergies Allergy/AdvReac Type Severity Reaction Status Date / Time Penicillins Allergy Severe THROAT Unverified 12/08/19 15:26 SWELLS, RASH amoxicillin Allergy Mild RASH Unverified 12/08/19 15:26 morphine [MORPHINE] Allergy Unknown HEADACHES Unverified 12/08/19 15:26 penicillin V Allergy Unknown facial Unverified 11/03/18 00:00 swelling Active Medications: Current Medications Acetaminophen (Acetaminophen 325 Mg Tablet) 650 mg PO Q6H PRN PRN Reason: Pain, Mild (Pain Scale 1-3) Last Admin: 06/12/21 17:27 Dose: 650 mg Documented by: Aspirin (Aspirin Enteric Coated 81 Mg Tablet.) 81 mg PO DAILY [facility] Last Admin: 06/13/21 09:19 Dose: 81 mg Documented by: Buprenorphine/Naloxone (Buprenorphine/Naloxone 8/2 Mg Film) 1 film SUBLINGUAL DAILY [facility] Last Admin: 06/13/21 09:19 Dose: 1 film Documented by: Enoxaparin Sodium (Enoxaparin Sodium 40 Mg/0.4 Ml Syringe) 40 mg SUBCUT Q24H [facility] Last Admin: 06/12/21 18:03 Dose: Not Given Documented by: Melatonin (Melatonin 3 Mg Tablet) 6 mg PO BEDTIME PRN PRN Reason: Insomnia Last Admin: 06/12/21 20:26 Dose: 6 mg Documented by: Ondansetron HCl (Ondansetron Hcl 4 Mg/2 Ml Vial) 4 mg IVPUSH Q8H PRN PRN Reason: Nausea and Vomiting Sodium Chloride (0.9 % Sodium Chloride Flush 3 Ml Syringe) 3 ml IVFLUSH QSHIFT [facility] Last Admin: 06/13/21 09:15 Dose: 3 ml Documented by: Home Medications Medication Instructions Recorded Confirmed Last Taken Type No Known Home Meds 06/12/21 06/12/21 Unknown History Physical Exam Vital Signs: Vital Signs: Last Vital Signs Temp 98.0 F 06/13/21 07:56 Pulse 74 06/13/21 07:56 Resp 18 06/13/21 07:56 BP 139/63 06/13/21 07:56 Pulse Ox 93 06/13/21 07:56 BMI result Body Mass Index 33.0 Neuro: Other: She was alert and awake with normal spontaneity of speech fluency comprehension and flat affect. Face was symmetrical. Visual yañez are full. There was no pronator drift. Ziqyra-mz-[id number] testing was normal. Deep tendon reflexes were 2+ with flexor plantars. She was somewhat unsteady. Speech was normal. Results Labs CBC & Chem 7: 06/12/21 13:05 06/12/21 15:49 Labs: Short CBC 06/12/21 Range/Units 13:05 WBC 7.6 (4.8-10.8) X10*3/uL Hgb 16.3 H (12.0-16.0) g/dl Hct 47.7 H (37.0-47.0) % Plt Count 135 L (160-400) X10*3/uL BMP 06/12/21 15:49 Sodium 136 Potassium 4.0 Chloride 101 Carbon Dioxide 27 BUN 10 Creatinine 0.85 Calcium 9.7 Liver Function 06/12/21 Range/Units 15:49 Total Bilirubin 0.6 (0.0-1.0) mg/dL Direct Bilirubin 0.2 (0.0-0.5) mg/dL AST 153 H (5-31) U/L ALT 107 H (0-31) U/L Alkaline Phosphatase 97 (39-117) U/L Albumin 4.0 (3.5-5.0) g/dL Urine 06/12/21 Range/Units 11:00 Urine Color YELLOW Urine Appearance CLEAR Urine pH 5.5 (5.0-8.0) Ur Specific [place] >= 1.030 H (1.005-1.025) Urine Protein 2+ H (NEG-TRACE) MG/DL Urine Glucose (UA) NEG (NEG) MG/DL Her head CT and CTA of brain and neck did not reveal any definite abnormality. Assessment and Plan (1) Right sided weakness: Status: Acute 55 years old woman with nonspecific complaints. She did not volunteer any weakness to me but initially has stated that her right side was weak. Her examination at this time did not reveal any focality. Imaging has not reveal any definite pathology the radiologist has suggested a possible pontine lesion. I would recommend a noncontrast MRI of brain for further definition. Procedures Date of Service Date of Service: 06/13/21
[2021-06-13 09:40] LABS: Cholesterol 297 mg/dL; HDL Cholesterol 27 mg/dL; LDL Cholesterol Calculated 229 mg/dl; Triglycerides 206 mg/dL
--- NOTE | 2021-06-13 10:19 | P.CONCA_ITS ---
History of Present Illness History of Present Illness Date of Service: 06/13/21 Chief complaint: rt sided weakness PMFSH Social History Social History (Updated 06/12/21 @ 17:33 by Eduin Rodriguez MD) Household Members: Spouse Housing: House Do you presently have visiting nurse or other home services: No Alcohol intake: former Patient Tobacco Use Status: Current everyday Tobacco user Tobacco use type: Cigarette Cigarettes Per Day: 2 Second Hand Smoke Exposure: No service: No Current occupational status: employed Meds Allergies Allergy/AdvReac Type Severity Reaction Status Date / Time Penicillins Allergy Severe THROAT Unverified 12/08/19 15:26 SWELLS, RASH amoxicillin Allergy Mild RASH Unverified 12/08/19 15:26 morphine [MORPHINE] Allergy Unknown HEADACHES Unverified 12/08/19 15:26 penicillin V Allergy Unknown facial Unverified 11/03/18 00:00 swelling Active Medications: Current Medications Acetaminophen (Acetaminophen 325 Mg Tablet) 650 mg PO Q6H PRN PRN Reason: Pain, Mild (Pain Scale 1-3) Last Admin: 06/12/21 17:27 Dose: 650 mg Documented by: Aspirin (Aspirin Enteric Coated 81 Mg Tablet.Dr) 81 mg PO DAILY [facility] Last Admin: 06/13/21 09:19 Dose: 81 mg Documented by: Buprenorphine/Naloxone (Buprenorphine/Naloxone 8/2 Mg Film) 1 film SUBLINGUAL DAILY [facility] Last Admin: 06/13/21 09:19 Dose: 1 film Documented by: Enoxaparin Sodium (Enoxaparin Sodium 40 Mg/0.4 Ml Syringe) 40 mg SUBCUT Q24H [facility] Last Admin: 06/12/21 18:03 Dose: Not Given Documented by: Melatonin (Melatonin 3 Mg Tablet) 6 mg PO BEDTIME PRN PRN Reason: Insomnia Last Admin: 06/12/21 20:26 Dose: 6 mg Documented by: Ondansetron HCl (Ondansetron Hcl 4 Mg/2 Ml Vial) 4 mg IVPUSH Q8H PRN PRN Reason: Nausea and Vomiting Sodium Chloride (0.9 % Sodium Chloride Flush 3 Ml Syringe) 3 ml IVFLUSH QSHIFT [facility] Last Admin: 06/13/21 09:15 Dose: 3 ml Documented by: Home Medications Medication Instructions Recorded Confirmed Last Taken Type No Known Home Meds 06/12/21 06/12/21 Unknown History Physical Exam Vital Signs: Vital Signs: Last Vital Signs Temp 98.0 F 06/13/21 07:56 Pulse 74 06/13/21 07:56 Resp 18 06/13/21 07:56 BP 139/63 06/13/21 07:56 Pulse Ox 93 06/13/21 07:56 BMI result Body Mass Index 33.0 Objective Labs and Meds Result diagrams: 06/12/21 13:05 06/12/21 15:49 Lab results: Laboratory Results - last 24 hr 06/12/21 06/12/21 06/12/21 11:00 11:00 12:49 WBC RBC Hgb Hct MCV MCH MCHC RDW Plt Count MPV Immature Gran % (Auto) Neut % (Auto) Lymph % (Auto) [place] % (Auto) Eos % (Auto) Baso % (Auto) Lymph # (Auto) [place] # (Auto) Eos # (Auto) Baso # (Auto) Abs Immat Gran (auto) Absolute Neuts (auto) Absolute Nucleated RBC Nucleated RBC % (auto) Smear Tech's Comments PT INR APTT Sodium Potassium Chloride Carbon Dioxide Anion Gap BUN Creatinine Estim Creat Clear Calc Estimated GFR Random Glucose Estimat Average Glucose Hemoglobin A1c % Calcium Magnesium Total Bilirubin Direct Bilirubin AST ALT Alkaline Phosphatase Troponin I High Sens Total Protein Albumin Triglycerides Cholesterol LDL Cholesterol, Calc HDL Cholesterol TSH Urine Color YELLOW Urine Appearance CLEAR Urine pH 5.5 Ur Specific [place] >= 1.030 H Urine Protein 2+ H Urine Glucose (UA) NEG Urine Ketones NEG Urine Blood NEG Urine Nitrite NEG Ur Leukocyte Esterase NEG Urine RBC 0-2 Urine WBC 0-2 Ur Squamous Epith Cells 1+ Urine Bacteria NONE Urine Opiates Screen Cancelled Urine Fentanyl Screen Cancelled Ur Barbiturates Screen Cancelled Ur Phencyclidine Scrn Cancelled Ur Amphetamines Screen Cancelled U Benzodiazepines Scrn Cancelled Urine Cocaine Screen Cancelled U Marijuana (THC) Screen Cancelled COVID-19 ([facility]LEE) Negative COVID-19 Clin Com See Note 06/12/21 06/12/21 06/12/21 13:05 13:05 13:05 WBC 7.6 RBC 4.90 Hgb 16.3 H Hct 47.7 H MCV 97.3 MCH 33.3 H MCHC 34.2 RDW 12.2 Plt Count 135 L MPV 11.1 Immature Gran % (Auto) 0.3 Neut % (Auto) 60.5 Lymph % (Auto) 27.0 [place] % (Auto) 9.0 Eos % (Auto) 2.8 Baso % (Auto) 0.4 Lymph # (Auto) 2.0 [place] # (Auto) 0.7 Eos # (Auto) 0.2 Baso # (Auto) 0.0 Abs Immat Gran (auto) 0.02 Absolute Neuts (auto) 4.6 Absolute Nucleated RBC 0.000 Nucleated RBC % (auto) 0.0 Smear Tech's Comments VERIFIED PT 13.9 H INR 1.2 H APTT 25.6 Sodium Potassium Chloride Carbon Dioxide Anion Gap BUN Creatinine Estim Creat Clear Calc Estimated GFR Random Glucose Estimat Average Glucose Hemoglobin A1c % Calcium Magnesium Total Bilirubin Direct Bilirubin AST ALT Alkaline Phosphatase Troponin I High Sens < 3.5 Total Protein Albumin Triglycerides Cholesterol LDL Cholesterol, Calc HDL Cholesterol TSH Urine Color Urine Appearance Urine pH Ur Specific [place] Urine Protein Urine Glucose (UA) Urine Ketones Urine Blood Urine Nitrite Ur Leukocyte Esterase Urine RBC Urine WBC Ur Squamous Epith Cells Urine Bacteria Urine Opiates Screen Urine Fentanyl Screen Ur Barbiturates Screen Ur Phencyclidine Scrn Ur Amphetamines Screen U Benzodiazepines Scrn Urine Cocaine Screen U Marijuana (THC) Screen COVID-19 ([facility]LEE) COVID-19 Clin Com 06/12/21 06/12/21 06/12/21 15:49 15:49 16:01 WBC RBC Hgb Hct MCV MCH MCHC RDW Plt Count MPV Immature Gran % (Auto) Neut % (Auto) Lymph % (Auto) [place] % (Auto) Eos % (Auto) Baso % (Auto) Lymph # (Auto) [place] # (Auto) Eos # (Auto) Baso # (Auto) Abs Immat Gran (auto) Absolute Neuts (auto) Absolute Nucleated RBC Nucleated RBC % (auto) Smear Tech's Comments PT INR APTT Sodium 136 Potassium 4.0 Chloride 101 Carbon Dioxide 27 Anion Gap 12 BUN 10 Creatinine 0.85 Estim Creat Clear Calc 82.7 Estimated GFR > 60 Random Glucose 145 H Estimat Average Glucose Hemoglobin A1c % Calcium 9.7 Magnesium 2.1 Total Bilirubin 0.6 Direct Bilirubin 0.2 AST 153 H ALT 107 H Alkaline Phosphatase 97 Troponin I High Sens 3.8 Total Protein 7.8 Albumin 4.0 Triglycerides Cholesterol LDL Cholesterol, Calc HDL Cholesterol TSH 1.69 Cancelled Urine Color Urine Appearance Urine pH Ur Specific [place] Urine Protein Urine Glucose (UA) Urine Ketones Urine Blood Urine Nitrite Ur Leukocyte Esterase Urine RBC Urine WBC Ur Squamous Epith Cells Urine Bacteria Urine Opiates Screen Urine Fentanyl Screen Ur Barbiturates Screen Ur Phencyclidine Scrn Ur Amphetamines Screen U Benzodiazepines Scrn Urine Cocaine Screen U Marijuana (THC) Screen COVID-19 ([facility]LEE) COVID-19 Clin Com 06/13/21 06/13/21 06:24 06:24 WBC RBC Hgb Hct MCV MCH MCHC RDW Plt Count MPV Immature Gran % (Auto) Neut % (Auto) Lymph % (Auto) [place] % (Auto) Eos % (Auto) Baso % (Auto) Lymph # (Auto) [place] # (Auto) Eos # (Auto) Baso # (Auto) Abs Immat Gran (auto) Absolute Neuts (auto) Absolute Nucleated RBC Nucleated RBC % (auto) Smear Tech's Comments PT INR APTT Sodium Potassium Chloride Carbon Dioxide Anion Gap BUN Creatinine Estim Creat Clear Calc Estimated GFR Random Glucose Estimat Average Glucose 148 Hemoglobin A1c % 6.8 Calcium Magnesium Total Bilirubin Direct Bilirubin AST ALT Alkaline Phosphatase Troponin I High Sens Total Protein Albumin Triglycerides 206 Cholesterol 297 LDL Cholesterol, Calc 229 HDL Cholesterol 27 TSH Urine Color Urine Appearance Urine pH Ur Specific [place] Urine Protein Urine Glucose (UA) Urine Ketones Urine Blood Urine Nitrite Ur Leukocyte Esterase Urine RBC Urine WBC Ur Squamous Epith Cells Urine Bacteria Urine Opiates Screen Urine Fentanyl Screen Ur Barbiturates Screen Ur Phencyclidine Scrn Ur Amphetamines Screen U Benzodiazepines Scrn Urine Cocaine Screen U Marijuana (THC) Screen COVID-19 (ASHLEE) COVID-19 Clin Com Imaging Radiologist's impression: Impressions Chest X-Ray 06/12/21 13:40 IMPRESSION: No acute cardiopulmonary process seen. Head CT 06/12/21 14:05 IMPRESSION: No acute intracranial pathology. This critical result was discussed with Bernice Morales at 1420 p.m. hours on June 12, 2021. It was ascertained that the content and urgency of the report was understood at the time of direct communication. Chest X-Ray 06/12/21 16:06 IMPRESSION: Right jugular line projects over SVC. No pneumothorax. Head/Neck CTA 06/12/21 16:21 IMPRESSION: - There is a suspected acute infarct within the left ventral tenzin best seen on image 44 of series 5 that would be better assessed with MRI. No large territorial infarcts and no intracranial hemorrhage. - No acute arterial occlusions and no significant arterial stenoses within the head or neck. There are a few penetrating atherosclerotic ulcers involving the right carotid bulb. Findings discussed with Dr. Munoz at 4:37 PM on 06/12/2021.
[2021-06-13] MEDS: LORazepam 2 MG/ML VIAL 1 MG IVPUSH (11:02)
[2021-06-13 11:28] VITALS: BP 119/65; PULSE 76; RESP 18; TEMP 36.6; O2SAT 95
--- NOTE | 2021-06-13 14:34 | PM.DS ---
DS: Providers Provider Date of Service: 06/13/21 Date of admission: 06/12/21 17:18 Date of discharge: 06/13/21 Primary care physician: OMERO Howard Consults: 06/12/21 17:21 Consult to Cardiology Routine Consulting Provider: Oh Bah Reason for consultation: abnormal EKG Consult to Neurology Routine Consulting Provider: [facility] Reason for consultation: right-sided weakness Has provider been notified: No DS: Diagnosis Discharge Diagnosis (1) Right sided weakness: Status: Acute DS: Summary Hospital Course Hospital Course: 55-year-old female patient with past medical history significant for anxiety depression chronic back pain status post discectomy in 2005, history of chronic abdominal pain, gastritis due tinnitus, presented to [facility] with 4 days of right? sided numbness and weakness according to patient symptoms started last Thursday with numbness of fingers later involving entire right-side,she felt every muscle of her right-side is tight so she use heating pad ,she felt its flare of her back pain, also had word-finding difficulty and had difficulty with ambulating so mostly stayed in bed,? she ambulated short distances holding onto furniture since symptoms persisted she came to the emergency room, workup in ED showed unremarkable CT head , EKG showed ST changes in anterior leads, with normal troponin with no symptoms of chest pain or palpitations, she was noted to have elevated blood? pressure 153/112 and? pulse 130 on arrival, CTA head and neck was concering for suspected acute infarction left ventral tenzin, patient is now being admitted to [facility] due to right-sided numbness weakness with concern for acute infarction. Hospital Course Admitted to telemetry overnight. Echocardiogram done and unremarkable. Seen by Neurology; MRI of brain done this a.m. read as negative by Neurology. No more further workup indicated. Patient wishes to go home and this is medically acceptable at this time. She will follow up with PCP at next available appointment. She has been encouraged to quit smoking Time Spent with Patient Time attestation: Total time spent providing and/or coordinating discharge services: Discharge coordination time: Greater than 30 minutes Quality: Stroke Does the patient have a stroke diagnosis?: No Physical Exam Vital Signs: Vital Signs: Last Vital Signs Temp 97.9 F 06/13/21 11:28 Pulse 76 06/13/21 11:28 Resp 18 06/13/21 11:28 BP 119/65 06/13/21 11:28 Pulse Ox 95 06/13/21 11:28 BMI result Body Mass Index 33.0 Const: Other: No acute distress Resp: Other: Clear to auscultation bilaterally no rales rhonchi wheezes Cardio: Other: No S4; positive S1-S2; no S3 murmurs or gallops GI: Other: Soft nontender nondistended with normoactive bowel sounds Neuro: Other: Cranial nerves 2-12 grossly intact as tested. Motor is 5/5 all extremities sensation is intact cognition is appropriate Extrem: Other: No edema bilaterally DS: Data Data Completed and Pending Labs on day of discharge: Laboratory Results - last 24 hr 06/12/21 06/12/21 06/12/21 11:00 11:00 12:49 Sodium Potassium Chloride Carbon Dioxide Anion Gap BUN Creatinine Estim Creat Clear Calc Estimated GFR Random Glucose Estimat Average Glucose Hemoglobin A1c % Calcium Magnesium Total Bilirubin Direct Bilirubin AST ALT Alkaline Phosphatase Troponin I High Sens Total Protein Albumin Triglycerides Cholesterol LDL Cholesterol, Calc HDL Cholesterol TSH Urine Color YELLOW Urine Appearance CLEAR Urine pH 5.5 Ur Specific [place] >= 1.030 H Urine Protein 2+ H Urine Glucose (UA) NEG Urine Ketones NEG Urine Blood NEG Urine Nitrite NEG Ur Leukocyte Esterase NEG Urine RBC 0-2 Urine WBC 0-2 Ur Squamous Epith Cells 1+ Urine Bacteria NONE Urine Opiates Screen Cancelled Urine Fentanyl Screen Cancelled Ur Barbiturates Screen Cancelled Ur Phencyclidine Scrn Cancelled Ur Amphetamines Screen Cancelled U Benzodiazepines Scrn Cancelled Urine Cocaine Screen Cancelled U Marijuana (THC) Screen Cancelled COVID-19 ([facility]LEE) Negative COVID-19 Clin Com See Note 06/12/21 06/12/21 06/12/21 15:49 15:49 16:01 Sodium 136 Potassium 4.0 Chloride 101 Carbon Dioxide 27 Anion Gap 12 BUN 10 Creatinine 0.85 Estim Creat Clear Calc 82.7 Estimated GFR > 60 Random Glucose 145 H Estimat Average Glucose Hemoglobin A1c % Calcium 9.7 Magnesium 2.1 Total Bilirubin 0.6 Direct Bilirubin 0.2 AST 153 H ALT 107 H Alkaline Phosphatase 97 Troponin I High Sens 3.8 Total Protein 7.8 Albumin 4.0 Triglycerides Cholesterol LDL Cholesterol, Calc HDL Cholesterol TSH 1.69 Cancelled Urine Color Urine Appearance Urine pH Ur Specific [place] Urine Protein Urine Glucose (UA) Urine Ketones Urine Blood Urine Nitrite Ur Leukocyte Esterase Urine RBC Urine WBC Ur Squamous Epith Cells Urine Bacteria Urine Opiates Screen Urine Fentanyl Screen Ur Barbiturates Screen Ur Phencyclidine Scrn Ur Amphetamines Screen U Benzodiazepines Scrn Urine Cocaine Screen U Marijuana (THC) Screen COVID-19 (ASHLEE) COVID-19 No Paper Just Vapor Com 06/13/21 06/13/21 06:24 06:24 Sodium Potassium Chloride Carbon Dioxide Anion Gap BUN Creatinine Estim Creat Clear Calc Estimated GFR Random Glucose Estimat Average Glucose 148 Hemoglobin A1c % 6.8 Calcium Magnesium Total Bilirubin Direct Bilirubin AST ALT Alkaline Phosphatase Troponin I High Sens Total Protein Albumin Triglycerides 206 Cholesterol 297 LDL Cholesterol, Calc 229 HDL Cholesterol 27 TSH Urine Color Urine Appearance Urine pH Ur Specific [place] Urine Protein Urine Glucose (UA) Urine Ketones Urine Blood Urine Nitrite Ur Leukocyte Esterase Urine RBC Urine WBC Ur Squamous Epith Cells Urine Bacteria Urine Opiates Screen Urine Fentanyl Screen Ur Barbiturates Screen Ur Phencyclidine Scrn Ur Amphetamines Screen U Benzodiazepines Scrn Urine Cocaine Screen U Marijuana (THC) Screen COVID-19 ([facility]LEE) COVID-19 Clin Com Discharge Plan Discharge Patient Disposition: Home, Self-Care Discharge Diagnosis: Parasthesia Referrals: Citlali Lr PA [Primary Care Provider] - 1 Week Discharge Medications: No Action No Known Home Meds 0RF Discharge Orders: Discharge Order (Routine); Ordered 06/13/21 Ordered By: Urbano Chatman Diet: advance to usual diet Activity on Discharge: As tolerated Stand Alone Forms: Patient Portal Discharge page Care Plan Goals: Resume activity as prior to hospital. Attempt to quit smoking Health Concerns: Follow-up with PCP for follow-up lab work Plan of Treatment: As per PCP Assessment: See discharge summary
--- NOTE | 2021-06-13 14:42 | MHC.CM.PN ---
Patient has been medically cleared for dc to home today, self care. IMM addressed with Patient this morning.Patient is aware of and in agreement with the dc plan.
--- NOTE | 2021-06-13 14:50 | MHC.SP.ADU ---
Referring provider: Dr. Eduin Rodriguez Reason for Referral: S/P CVA Type of Treatment: 29935 Evaluation Speech Sound Production WITH Language Date of Plan of Treatment: 06/13/21 Onset of Symptoms/Illness: 06/12/21 Date Treatment Started: 06/13/21 Medical Diagnosis: R numbness and weakness w/aphasia Primary Speech Language Diagnosis: R47.01 Aphasia Secondary Speech Language Diagnosis: History Pt is a 55 year old woman who had been experiencing R numbness and weakness over the past four days. Pt lives in private home w/family. Medical History: Other: Chronic abdominal pain, back pain, Gastritis, distant PMH of alcoholic pancreatitis. Medication List: See chart Recent Hospitalizations: No Respiratory Needs: Room Air Patient Orientation: Alert & Oriented x 4 Social History: Employment Status: Highest level of education obtained: Current Living Situation: Lives in private home w/family Assistive Devices in use: Comment: Past Speech Language Therapy: UNK Other Therapies Seen in Current Calendar Year: Other: UNK Swallowing History: Dysphagia Specific: Within Functional Limits Comments: Pre-eval Risk for Aspiration: Pre-evaluation Dietary Consistencies: Regular Pre-eval Liquid Intake: Thin Pre-eval Medication Intake: Whole with Liquid Reported Speech, Language, Cognition difficulties: Not Applicable Comments: Pt reported to have word finding difficulties on Physician's Admission Report. Patient when seen today for Speech/Language screening denied any difficulty with word finding, speaking, communicating. Quality of Life: Patient Stated Goal of Speech-Language Therapy: Assess for aphasia Assessment Speech Production: Within Functional Limits Clinical Impression: Intact Observations: On administration of short form of [place] Naming Test, and Bedside screening w/ Western Aphasia Battery, Pt presents Speech and Language WNL, no indication of impairment. Informal Voice Assessment: Voice Loudness: Normal Voice Nasal Resonance: Voice Oral Resonance: Voice Phonatory-based Quality: Normal Voice Pitch: Normal Voice Other Observations: Clinical Impression: Did Not Test Clinicial Observations: Tests of Speech & Lang Adults: WAB-R BNT Clinical Impression: Intact Observations: On bedside WAB-R and BNT Short Form, Pt demonstrated no errors, no difficulty with speech or receptive/expressive language with all skills WNL and at baseline. No further FIELD MARKETING DIRECTOR services needed, D/C at this time, notified of evaluation results by secure text Tests of Cognition: Clinical Impression: Observations: Augmentative and Alternative Communication: Observations: Impressions and Recommendations Summary: Impact on Daily Function/Activity Limitations: Daily Activities: None Interpersonal Interactions: None Education: None Employment: None Community: None Prognosis for Improvement: Excellent Comment: Recommendation for Speech Therapy: NA:Typical Evaluation Frequency/Duration: Date Range for Service Requested: Time to Reassess: Prison Goals: Short Term Goals: Goal # : Goal Status: Goal# : Goal Status: Goal # : Goal Status: Goal # : Goal Status: Recommended Referrals to be Discussed with Primary Care Provider: Patient Education: Completed: Yes Patient/Caregiver Education: Described Results of Evaluation Patient expressed understanding of evaluation Comments/Barriers to Learning: Electrical Test Technician Clinican/Clinical Fellow: No Supervisory Statement: N/A Speech Language Pathologist: Alla Parikh M.A., CCC-FIELD MARKETING DIRECTOR
--- NOTE | 2021-06-13 15:04 | MHC.CM.PN ---
CM spoke with Patient's /Gumaro; he will be picking Patient up today between 4 and 430 PM. REI has informed RN.
[2021-06-13 15:14] VITALS: BP 144/78; PULSE 72; RESP 17; TEMP 36.2; O2SAT 96
== END 2021-06-13 16:15 | disposition home or self-care (01) | DRG 57 ==
LOC: HO.ED 17:17 → HO.EDOVER 17:31 → HO.IMC 17:34
PROVIDERS: Emergency Medicine; Admitting Provider Hospitalist; Emergency Provider Emergency Medicine; Visit Provider Hospitalist
DX: G81.91 Hemiplegia, unspecified affecting right dominant side (principal); F11.20 Opioid dependence, uncomplicated; F17.210 Nicotine dependence, cigarettes, uncomplicated; Z71.6 Tobacco abuse counseling; Z88.0 Allergy status to penicillin; Z88.5 Allergy status to narcotic agent; G89.29 Other chronic pain; Z20.822 Contact with and (suspected) exposure to COVID-19
CPT/HCPCS: 36415; 70450; 70496; 70498; 70551; 71045; 80048; 80061; 80076; 81001; 83036; 83735; 84443; 84484; 85025; 85610; 85730; 87635; 92523; 93005; 93308; 96374; 97161; 97165; 99285; J1650; J2060; Q9957; Q9967

== ENCOUNTER → 2021-07-30 10:31 | Outpatient (BNVA) | payer MEDICARE, MEDICAID, SELFPAY | PROVIDERS: Visit Provider Internal Medicine | DX: R94.31 Abnormal electrocardiogram [ECG] [EKG] (principal); Z86.73 Personal history of transient ischemic attack (TIA), and cerebral infarction without residual deficits | CPT/HCPCS: 99202 ==

== ENCOUNTER 2021-10-03 09:37 | Emergency (ER) | payer MEDICARE, MEDICAID, SELFPAY ==
--- NOTE | ~2021-10-03 | CT_ITS ---
EXAMINATION: CT HEAD WITHOUT CONTRAST CLINICAL INFORMATION: Left facial droop. COMPARISON: None TECHNIQUE: Contiguous axial imaging was performed from the skull base to vertex without intravenous administration of contrast. This CT examination was performed using dose optimization techniques as appropriate, variously including the following: *Automated exposure control *Adjustment of mA and/or kV according to patient size (this includes techniques or standardized protocols for targeted exams where dose is matched to indication/reason for exam; i.e. extremities or head) *Use of iterative reconstruction technique DLP: 684 mGy-cm FINDINGS: There is no evidence of acute intracranial hemorrhage or territorial infarction. Attenuation of brain parenchyma appears unremarkable. No abnormal mass effect or midline shift is seen. Wiggins to white matter differentiation is well preserved. Ventricles appear unremarkable. No extra-axial fluid collections are identified. The osseous structures and soft tissues appear unremarkable. The mastoid air cells and visualized portions of the paranasal sinuses are well aerated. CT/CT head/brain wo con IMPRESSION: No acute finding.
--- NOTE | ~2021-10-03 | MR_ITS ---
EXAMINATION: MR BRAIN WITHOUT CONTRAST CLINICAL INFORMATION: Left-sided facial droop. COMPARISON: Brain MRI 06/13/2021. Head CT 10/03/2021. TECHNIQUE: Multiplanar, multisequence imaging of the brain was performed without intravenous contrast. FINDINGS: There is no acute infarction, mass, hemorrhage, or extra-axial collection. The ventricles, sulci, and basilar cisterns are normal in size and configuration. The flow voids of the major intracranial arteries appear intact. The bones and extracranial soft tissues are unremarkable. MR/MR head/brain wo con IMPRESSION: No acute infarct, mass lesion, intracranial hemorrhage, or evidence of hydrocephalus.
--- NOTE | 2021-10-03 09:50 | ECG_ITS ---
Test Reason : ?stroke Blood Pressure : / mmHG Vent. Rate : 088 BPM Atrial Rate : 088 BPM P-R Int : 158 ms QRS Dur : 076 ms QT Int : 422 ms P-R-T Axes : 026 014 032 degrees QTc Int : 510 ms Sinus rhythm with Fusion complexes ST & T wave abnormality, consider anterior ischemia Abnormal ECG When compared with ECG of 13-JUN-2021 11:06, Fusion complexes are now Present Referred By: Dottie Mondragon Electronically Signed By:ELPIDIO MORALES MD
[2021-10-03 09:54] VITALS: BP 143/79; PULSE 89; RESP 18; O2SAT 93; BMI 33.3
[2021-10-03 10:22] VITALS: BP 150/78; PULSE 82; RESP 16; O2SAT 92
[2021-10-03 10:26] LABS: Glucose, Whole Blood 116 mg/dL (60-115)
--- NOTE | 2021-10-03 10:28 | ED_ITS ---
HPI - Neuro Symptoms/Deficit General Chief Complaint: Stroke Stated Complaint: Facial Droop Time Seen by Provider: 10/03/21 09:48 Source: patient and RN notes reviewed Mode of arrival: ambulatory Limitations: no limitations History of Present Illness HPI Narrative: This is a 55-year-old female, the past medical history of anxiety, depression, chronic back pain status post discectomy in 2005, chronic abdominal pain, gastritis, presented to the emergency department today from stress testing with complaints of left-sided facial droop since this morning. Patient reports that she woke up at 07:00 o'clock this morning, and noticed that the right side of her throat hurt and also notice some left-sided facial droop. Patient denies any headaches, visual changes, dizziness, lightheadedness, chest pain, palpi tations, shortness of breath, nausea, vomiting, diarrhea, or abdominal pain. She reports that she has a history of a stroke, reports that she has some residual right-sided weakness, denies facial involvement at that time. No other complaints or concerns at this time. Onset (ago): unknown Location: left face History of same: No Severity: moderate Quality: weak Relieving factors: none Exacerbating factors: none Context: other (wake up symptoms) Associated symptoms: denies other symptoms Treatments Prior to Arrival: none Related Data Home Medications Medication Instructions Recorded Confirmed buprenorphine 8 mg-naloxone 2 mg 1 strip sublingual DAILY 06/13/21 07/30/21 sublingual film (Suboxone) trazodone 50 mg tablet 100 mg PO BEDTIME PRN 07/30/21 07/30/21 Previous Rx's Medication Instructions Recorded prednisone 50 mg tablet 50 mg PO DAILY #5 tabs 10/03/21 valacyclovir 1 gram tablet 1,000 mg PO TID 7 days #21 tabs 10/03/21 Allergies Allergy/AdvReac Type Severity Reaction Status Date / Time Penicillins Allergy Severe THROAT Verified 07/30/21 10:48 SWELLS, RASH amoxicillin Allergy Mild RASH Verified 07/30/21 10:48 morphine [MORPHINE] Allergy Unknown HEADACHES Verified 07/30/21 10:48 Review of Systems Review of Systems: Constitutional: No Fever, No Chills ENT/Mouth: +sore throat, No Rhinorrhea, No Swallowing Difficulty Eyes: No Eye Pain, No Swelling, No Redness Cardiovascular: No Chest Pain, No SOB, No Orthopnea, No Edema Respiratory: No Cough, No Sputum, No Wheezing, No dyspnea Gastrointestinal: No Nausea, No Vomiting, No Diarrhea, No abdominal Pain, No Hematochezia, No Melena Genitourinary: No Dysuria, No Urinary Frequency, No Hematuria Musculoskeletal: No joint pain, No Myalgias Skin: No Skin Lesions, No rash Neuro: + right sided Weakness, No Numbness, No Dizziness, No Headache Psych: No Anxiety/Panic, No Depression Heme/Lymph: No Bruising, No Lymphadenopathy Endocrine: No Polyuria, No Polydipsia FOR[facility]LY [facility], [facility] Past Medical History Surgical History (Updated 07/30/21 @ 10:49 by PALMA Goldberg) History of back surgery History of hysterectomy History of lumpectomy of both breasts Family History Family History (Updated 07/30/21 @ 10:50 by PALMA Goldberg) Father No problems noted. Mother Ovarian cancer Bartolo's disease Maternal Grandfather Atrial fibrillation History of heart artery stent Atherosclerosis Social History Social History Household Members: Spouse Housing: House Do you presently have visiting nurse or other home services: No Alcohol intake: former Patient Tobacco Use Status: Current everyday Tobacco user Tobacco use type: Cigarette Cigarettes Per Day: 2 Second Hand Smoke Exposure: No Advance Directives: No Advance Directives Information Provided: Yes service: No Current occupational status: employed Physical Exam Vital Signs: Vital Signs: Last Vital Signs Pulse 69 10/03/21 12:07 Resp 16 10/03/21 12:07 BP 132/78 10/03/21 12:07 Pulse Ox 94 10/03/21 12:07 O2 Del Method 10/03/21 12:07 BMI result Body Mass Index 33.3 Appearance: Alert. Oriented X3. No acute distress. Eyes: Pupils equal, round and reactive to light. ENT: Oropharynx is mildly erythematous, with thick discharge noted on tongue. Tonsils are eythematous butnonedematous and non exudative. Airway is patent. uvula is midline. Neck: Normal inspection. Neck supple. CVS: Normal heart rate and rhythm. Pulses normal. Respiratory: No respiratory distress. Breath sounds normal. Abdomen: Soft and nontender. +BS x4 Skin: Skin warm and dry. Normal skin color. Normal skin turgor. No rashes. Extremities: No lower extremity edema. Neuro: Oriented X 3. Asymmetric smile, left-sided droop. Able to raise eyebrow as however some decreased forehead crease on the left. Sleeve [place]eller strength equal bilaterally. No sensory deficit. Able to perform [id number] testing without any abnormalities. Negative pronator drift. Flat affect. Sensation intact bilaterally. No tongue fasciculations and tongue is midline. Course Course Course Narrative: This is a 55-year-old female, the past medical history of anxiety, depression, chronic back pain status post discectomy in 2005, chronic abdominal pain, gastritis, presented to the emergency department today from stress testing with complaints of left-sided facial droop since this morning. These are wake up symptoms, non-debilitating, not a candidate for TPA. Plan: Labs, EKG, and CT head without contrast ordered. Reevaluation(s) Reevaluation #1: CT head reading still pending at this time however given patient's symptoms and clinical findings we will order an MRI for further evaluation and rule out of stroke. Patient premedicated with midazolam 2 mg IV push prior to MRI. Time: 12:29 Reevaluation #2: MRI is negative. 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 Patient advised to also tape left eye shut if she is unable to close her left eye, also advised to get lubricating eyedrops as needed to protect eye. Patient also advised to call cardiology today to reschedule stress test. Discussed with patient's son as well as patient who understand and agree with this plan. Time: 14:22 MDM - Neuro Symptoms/Deficit Lab Data Result diagrams: 10/03/21 10:34 10/03/21 10:34 Labs: Lab Results 10/03/21 10/03/21 10/03/21 Range/Units 10:21 10:34 10:34 WBC 9.1 (4.8-10.8) X10*3/uL RBC 4.43 (4.20-5.50) X10*6/uL Hgb 14.4 (12.0-16.0) g/dl Hct 41.1 (37.0-47.0) % MCV 92.8 (80.0-98.0) fL MCH 32.5 (27.0-33.0) pg MCHC 35.0 (31.0-35.0) g/dl RDW 12.3 (11.0-16.0) % Plt Count 155 L (160-400) X10*3/uL MPV 10.9 (9.4-12.3) fL Immature Gran % (Auto) 0.3 (0.0-0.4) % Neut % (Auto) 78.2 H (45-73) % Lymph % (Auto) 12.4 L (20-40) % Eddy % (Auto) 7.7 (2-11) % Eos % (Auto) 1.2 (0-4) % Baso % (Auto) 0.2 (0-2) % Lymph # (Auto) 1.1 L (1.2-4.9) X10*3/uL Eddy # (Auto) 0.7 (0.1-1.2) X10*3/uL Eos # (Auto) 0.1 (0.0-0.4) X10*3/uL Baso # (Auto) 0.0 (0.0-0.2) X10*3/uL Abs Immat Gran (auto) 0.03 (0.00-0.03) X10*3/uL Absolute Neuts (auto) 7.1 (2.0-8.3) x10*3/uL Absolute Nucleated RBC 0.000 (0.0-0.012) X10*3/uL Nucleated RBC % (auto) 0.0 (0.0-0.2) /100WBC ESR (0-20) MM/HR PT 13.4 H (10.0-13.1) SEC INR 1.2 H (0.9-1.1) APTT 32.0 D (24.1-38.0) SEC Sodium (135-145) mmol/L Potassium (3.3-5.1) mmol/L Chloride (96-108) mmol/L Carbon Dioxide (22-29) mmol/L Anion Gap (12-20) BUN (9-16) mg/dL Creatinine (0.5-1.4) mg/dL Estim Creat Clear Calc Estimated GFR POC Glucose 116 H (60-115) mg/dL Random Glucose (60-115) mg/dL Calcium (8.4-10.2) mg/dL Magnesium (1.6-2.6) mg/dL Total Bilirubin (0.0-1.0) mg/dL Direct Bilirubin (0.0-0.5) mg/dL AST (5-31) U/L ALT (0-31) U/L Alkaline Phosphatase (39-117) U/L C-Reactive Protein (< or = 0.50) mg/dL Total Protein (6.5-8.0) g/dL Albumin (3.5-5.0) g/dL Ethyl Alcohol mg/dL COVID-19 (ASHLEE) (Negative) COVID-19 Clin Com S. pyogenes GrpA SIMONA (Negative) 10/03/21 10/03/21 10/03/21 Range/Units 10:34 10:34 10:34 WBC (4.8-10.8) X10*3/uL RBC (4.20-5.50) X10*6/uL Hgb (12.0-16.0) g/dl Hct (37.0-47.0) % MCV (80.0-98.0) fL MCH (27.0-33.0) pg MCHC (31.0-35.0) g/dl RDW (11.0-16.0) % Plt Count (160-400) X10*3/uL MPV (9.4-12.3) fL Immature Gran % (Auto) (0.0-0.4) % Neut % (Auto) (45-73) % Lymph % (Auto) (20-40) % Eddy % (Auto) (2-11) % Eos % (Auto) (0-4) % Baso % (Auto) (0-2) % Lymph # (Auto) (1.2-4.9) X10*3/uL Eddy # (Auto) (0.1-1.2) X10*3/uL Eos # (Auto) (0.0-0.4) X10*3/uL Baso # (Auto) (0.0-0.2) X10*3/uL Abs Immat Gran (auto) (0.00-0.03) X10*3/uL Absolute Neuts (auto) (2.0-8.3) x10*3/uL Absolute Nucleated RBC (0.0-0.012) X10*3/uL Nucleated RBC % (auto) (0.0-0.2) /100WBC ESR 16 (0-20) MM/HR PT (10.0-13.1) SEC INR (0.9-1.1) APTT (24.1-38.0) SEC Sodium 137 (135-145) mmol/L Potassium 3.6 (3.3-5.1) mmol/L Chloride 103 (96-108) mmol/L Carbon Dioxide 25 (22-29) mmol/L Anion Gap 13 (12-20) BUN 8 L (9-16) mg/dL Creatinine 0.80 (0.5-1.4) mg/dL Estim Creat Clear Calc 87.3 Estimated GFR > 60 POC Glucose (60-115) mg/dL Random Glucose 115 (60-115) mg/dL Calcium 9.1 D (8.4-10.2) mg/dL Magnesium 1.6 (1.6-2.6) mg/dL Total Bilirubin 0.7 (0.0-1.0) mg/dL Direct Bilirubin 0.3 (0.0-0.5) mg/dL AST 21 D (5-31) U/L ALT 16 (0-31) U/L Alkaline Phosphatase 66 D (39-117) U/L C-Reactive Protein (< or = 0.50) mg/dL Total Protein 7.2 (6.5-8.0) g/dL Albumin 4.1 (3.5-5.0) g/dL Ethyl Alcohol < 10 mg/dL COVID-19 (ASHLEE) Negative (Negative) COVID-19 Clin Com See Note S. pyogenes GrpA SIMONA (Negative) 10/03/21 10/03/21 Range/Units 10:34 10:41 WBC (4.8-10.8) X10*3/uL RBC (4.20-5.50) X10*6/uL Hgb (12.0-16.0) g/dl Hct (37.0-47.0) % MCV (80.0-98.0) fL MCH (27.0-33.0) pg MCHC (31.0-35.0) g/dl RDW (11.0-16.0) % Plt Count (160-400) X10*3/uL MPV (9.4-12.3) fL Immature Gran % (Auto) (0.0-0.4) % Neut % (Auto) (45-73) % Lymph % (Auto) (20-40) % Eddy % (Auto) (2-11) % Eos % (Auto) (0-4) % Baso % (Auto) (0-2) % Lymph # (Auto) (1.2-4.9) X10*3/uL Eddy # (Auto) (0.1-1.2) X10*3/uL Eos # (Auto) (0.0-0.4) X10*3/uL Baso # (Auto) (0.0-0.2) X10*3/uL Abs Immat Gran (auto) (0.00-0.03) X10*3/uL Absolute Neuts (auto) (2.0-8.3) x10*3/uL Absolute Nucleated RBC (0.0-0.012) X10*3/uL Nucleated RBC % (auto) (0.0-0.2) /100WBC ESR (0-20) MM/HR PT (10.0-13.1) SEC INR (0.9-1.1) APTT (24.1-38.0) SEC Sodium (135-145) mmol/L Potassium (3.3-5.1) mmol/L Chloride (96-108) mmol/L Carbon Dioxide (22-29) mmol/L Anion Gap (12-20) BUN (9-16) mg/dL Creatinine (0.5-1.4) mg/dL Estim Creat Clear Calc Estimated GFR POC Glucose (60-115) mg/dL Random Glucose (60-115) mg/dL Calcium (8.4-10.2) mg/dL Magnesium (1.6-2.6) mg/dL Total Bilirubin (0.0-1.0) mg/dL Direct Bilirubin (0.0-0.5) mg/dL AST (5-31) U/L ALT (0-31) U/L Alkaline Phosphatase (39-117) U/L C-Reactive Protein 0.93 H (< or = 0.50) mg/dL Total Protein (6.5-8.0) g/dL Albumin (3.5-5.0) g/dL Ethyl Alcohol mg/dL COVID-19 (ASHLEE) (Negative) COVID-19 Clin Com S. pyogenes GrpA SIMONA Negative (Negative) Imaging Data CT scan - head: Attestation: I personally reviewed and interpreted this imaging study as follows: Radiologist's impression: EXAMINATION: CT HEAD WITHOUT CONTRAST CLINICAL INFORMATION: Left facial droop.? COMPARISON: None TECHNIQUE: Contiguous axial imaging was performed from the skull base to vertex without intravenous administration of contrast. This CT examination was performed using dose optimization techniques as appropriate, variously including the following: *Automated exposure control *Adjustment of mA and/or kV according to patient size (this includes techniques or standardized protocols for targeted exams where dose is matched to indication/reason for exam; i.e. extremities or head) *Use of iterative reconstruction technique DLP: 684 mGy-cm FINDINGS: There is no evidence of acute intracranial hemorrhage or territorial infarction. Attenuation of brain parenchyma appears unremarkable. No abnormal mass effect or midline shift is seen. Wiggins to white matter differentiation is well preserved. Ventricles appear unremarkable. No extra-axial fluid collections are identified. The osseous structures and soft tissues appear unremarkable. The mastoid air cells and visualized portions of the paranasal sinuses are well aerated. ? CT/CT head/brain wo con IMPRESSION: No acute finding. Dictated By: Eliazar Meier ECG Data Attestation: I personally reviewed and interpreted this ECG as follows: ECG interpretation date: 10/03/21 ECG interpretation time: 10:13 Prior ECG tracings: available for review Interpretation: Sinus rhythm with fusion complexes. T wave inversions noted in V1-V4; seen in previous EKG from May 2021. SD interval 158ms, QT/QTC 422/510. No st elevations or depressions. NIH Stroke Scale Internal: Other Level of Consciousness: Alert Level of Consciousness Questions: Answers both questions correctly Level of Consciousness Commands: Performs both tasks correctly Best Gaze: Normal Visual: No visual loss Facial Palsy: Partial paralysis Motor Arm (Right): No drift Motor Arm (Left): No drift Motor Leg (Right): No drift Motor Leg (Left): No drift Limb Ataxia: Absent Sensory: Normal Best Language: No aphasia Dysarthia: Normal Extinction and Inattention: No abnormality Score: 2 Discharge Plan Discharge Clinical Impression: Wang's palsy Patient Disposition: Home, Self-Care Instructions: Wang Palsy (ED) Additional Instructions: Your CT scan of your head as well as the MRI was normal. There is no signs of stroke today. We will treat your symptoms with a course of prednisone as well as an anti viral. Please complete these medications as prescribed. 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 They will likely reschedule this test for you. If you develop new or worsening symptoms call 911 or come back to the ER for further evaluation. Prescriptions: New prednisone 50 mg tablet 50 mg PO DAILY Qty: 5 0RF valacyclovir 1 gram tablet 1,000 mg PO TID 7 Days Qty: 21 0RF No Action buprenorphine-naloxone [Suboxone] 8-2 mg film 1 strip sublingual DAILY trazodone 50 mg tablet 100 mg PO BEDTIME PRN
[2021-10-03 10:42] LABS: MANUAL DIFF FLAG NO
[2021-10-03 10:43] LABS: Basophils Percent Auto 0.2 % (0-2); Eosinophils Absolute Auto 0.1 X10*3/uL (0.0-0.4); Eosinophils Percent Auto 1.2 % (0-4); Hematocrit 41.1 % (37.0-47.0); Hemoglobin 14.4 g/dl (12.0-16.0); Imm Gran Abs Auto 0.03 X10*3/uL (0.00-0.03); Imm Gran Pct Auto 0.3 % (0.0-0.4); Lymphocytes Absolute Auto 1.1 X10*3/uL (1.2-4.9); Lymphocytes Percent Auto 12.4 % (20-40); Mean Corpuscular Hemoglobin 32.5 pg (27.0-33.0); Mean Corpuscular Volume 92.8 fL (80.0-98.0); Mean Platelet Volume 10.9 fL (9.4-12.3); Monocytes Absolute Auto 0.7 X10*3/uL (0.1-1.2); Monocytes Percent Auto 7.7 % (2-11); Neutrophils Absolute Auto 7.1 x10*3/uL (2.0-8.3); Neutrophils Percent Auto 78.2 % (45-73); Platelet Count 155 X10*3/uL (160-400); Red Blood Count 4.43 X10*6/uL (4.20-5.50); Red Cell Distribution Width 12.3 % (11.0-16.0); White Blood Count 9.1 X10*3/uL (4.8-10.8)
[2021-10-03 10:49] LABS: INTERNATIONAL NORM RATIO 1.2 (0.9-1.1); Prothrombin Time 13.4 SEC (10.0-13.1)
[2021-10-03 11:02] LABS: IDNOW Serial# 08D9AD1C; Strep A Nucleic Acid Negative (Negative)
[2021-10-03 11:08] LABS: COVID-19 Test Negative (Negative); IDNOW Serial# 16C4AD1C
[2021-10-03 11:18] LABS: Alanine Aminotransferase 16 U/L (0-31); Albumin Level 4.1 g/dL (3.5-5.0); Alkaline Phosphatase 66 U/L (39-117); Anion Gap 13 (12-20); Aspartate Amino Transferase 21 U/L (5-31); Bilirubin Direct 0.3 mg/dL (0.0-0.5); Bilirubin Total 0.7 mg/dL (0.0-1.0); Blood Urea Nitrogen 8 mg/dL (9-16); C Reactive Protein 0.93 mg/dL (< or = 0.50); Calcium 9.1 mg/dL (8.4-10.2); Carbon Dioxide 25 mmol/L (22-29); Chloride 103 mmol/L (96-108); Creatinine Clr Calc Pharmacy 87.3; Estimated Glomerular Filt Rate > 60; Ethanol < 10 mg/dL; Glucose Random 115 mg/dL (60-115); Magnesium 1.6 mg/dL (1.6-2.6); Potassium 3.6 mmol/L (3.3-5.1); Sodium 137 mmol/L (135-145); Total Protein 7.2 g/dL (6.5-8.0)
[2021-10-03 11:25] LABS: Erythrocyte Sedimentation Rate 16 MM/HR (0-20)
[2021-10-03 12:07] VITALS: BP 132/78; PULSE 69; RESP 16; O2SAT 94
[2021-10-03] MEDS: Midazolam HCl/PF 2 MG/2 ML VIAL IVPUSH (12:26)
[2021-10-05 17:25] LABS: Lyme Abs Screen <0.90 index
== END 2021-10-03 14:55 | disposition home or self-care (01) ==
PROVIDERS: Physician Assistant; Emergency Provider Emergency Medicine; PCP Family Medicine
DX: G51.0 Bell's palsy (principal); F17.200 Nicotine dependence, unspecified, uncomplicated; Z20.822 Contact with and (suspected) exposure to COVID-19; Z71.6 Tobacco abuse counseling; Z79.899 Other long term (current) drug therapy
CPT/HCPCS: 36415; 70450; 70551; 80048; 80076; 82077; 82947; 83735; 85025; 85610; 85652; 85730; 86140; 86617; 86618; 87635; 87651; 93005; 96374; 99284; 99285; J2250

== ENCOUNTER → 2021-10-24 13:50 | Outpatient (BNVA) | payer MEDICARE, MEDICAID, SELFPAY | PROVIDERS: PCP Family Medicine; Visit Provider Internal Medicine | DX: R94.31 Abnormal electrocardiogram [ECG] [EKG] (principal) | CPT/HCPCS: 99212 ==

== ENCOUNTER → 2021-11-14 09:56 | Outpatient (REF) | payer MEDICARE, MEDICAID, SELFPAY ==
--- NOTE | ~2021-11-14 | NM_ITS ---
Lexiscan Myocardial perfusion study Indication: Abnormal EKG, history of stroke, assess for ischemia Technique: The patient was brought in for a Lexiscan perfusion study on 11/14/2021 and was injected 0.4 mg of Lexiscan intravenously. Within a minute of this injection 25 mCi of sestamibi was given intravenously. Images were obtained using the SPECT gamma camera interlaced with the gating device. Images were obtained in supine position. Resting perfusion study was performed on 11/19/2021. Patient was administered 25 mCi of sestamibi intravenously at rest. Images were then obtained in supine position. Total DLP 111mGy-cm. Images were processed with the software and compared side to side in short axis, horizontal long axis and vertical long axis views. Findings: Raw acquisition reviewed. The stress perfusion study showed no significant perfusion abnormality. Both uncorrected and CT attenuation corrected images were reviewed. The gated study shows normal LV systolic function with calculated LVEF of 63%. LV cavity is normal in size. The gated study shows normal wall thickening and contraction of segments. Resting study shows no significant perfusion abnormality. Gating at rest reveals normal wall motion with ejection fraction at 67%. The findings are consistent with no reversible or fixed perfusion abnormality. NM/NM cardiolite stress test Impression: 1. Myocardial perfusion imaging study shows normal myocardial perfusion. No evidence of any ischemia or infarction. 2. Gated LVEF is 62% during stress and 67% during rest. 3. Transient ischemic dilatation not present. EKG component of the test reported separately.
--- NOTE | 2021-11-14 09:58 | CA_ITS ---
Acquisition Time: 2021-11-14 10:57:35 Total Exercise Time: 00:02:00 Test Indications: ABN EKG, STROKE Medications: SEE CHART Protocol: LEXISCAN Max HR: 104 BPM 63% of Pred: 164 BPM Max BP: 104/070 mmHG Max Work Load: 1.0 METS Pharmacological stress test with Lexiscan injection, while sitting and kicking her legs, without anginal symptoms, with isolated PVCs, with normotensive response to injection, with nondiagnostic EKG for ischemia. Nuclear images pending. Test reviewed with Dr Fitch. Referred By: Rickie Fitch Overread By: NOAH KEENAN
== END ==
LOC: HO.CARD 09:56
PROVIDERS: PCP Family Medicine; Visit Provider Internal Medicine
DX: R94.31 Abnormal electrocardiogram [ECG] [EKG] (principal)
CPT/HCPCS: 78452; 93017; A9500; J0280; J2785

== ENCOUNTER → 2021-12-09 12:35 | Outpatient (BNVA) | payer MEDICARE, MEDICAID, SELFPAY | PROVIDERS: PCP Family Medicine; Visit Provider Internal Medicine Cardiovascular Disease | DX: R94.31 Abnormal electrocardiogram [ECG] [EKG] (principal) | CPT/HCPCS: 99212 ==

== ENCOUNTER 2022-12-01 14:50 | Outpatient (AMB) | payer MEDICARE, MEDICAID, SELFPAY ==
--- NOTE | 2022-12-01 14:59 | A.OFFVIS_ITS ---
Intake Vital Signs 12/01/22 15:00 Height 5 ft 5 in Weight 187 lb 6.287 oz BMI 31.2 BP 110/76 Blood Pressure Location Lt brachial Position Sitting Pulse 87 Intake Visit Reasons: 1 yr f/u Intake Note: 1 year follow up w/ EKG [facility] Executive Director Required: No Accompanied by: Self / Same As Patient Allergies Penicillins Allergy (Severe, Verified 12/01/22 15:00) THROAT SWELLS, RASH amoxicillin Allergy (Mild, Verified 12/01/22 15:00) RASH morphine [MORPHINE] Allergy (Unknown, Verified 12/01/22 15:00) HEADACHES Medication List - Last Reconciled 12/01/22 by Rickie Fitch MD buprenorphine-naloxone 8-2 mg (Suboxone) 1 strip sublingual DAILY trazodone 100 mg PO BEDTIME PRN HPI HPI Comments History of Present Illness Details Dulce returns for follow-up regarding abnormal EKG. To recall, she was admitted to the hospital with right-sided weakness and at that time, had workup for a possible stroke. CTA reported to be suspicious for an acute left-sided infarct. However MRI does not show anything acute. Hence not clear if she actually had a stroke or not. From the cardiac standpoint, she has had T inversions across the precordial leads. However no known coronary disease, myocardial infarction. Then we ordered a stress test. However on the day of stress test he apparently had facial droop and and went to the ER. Then diagnosed to have Wang's palsy. Subsequently, she was able to complete the stress test. Overall, feels good. Nothing clear-cut cardiac but she still gets some chest pains off and on. These are random and difficult to say what they are. However, not classic for angina. [facility] Surgical History History of back surgery History of hysterectomy History of lumpectomy of both breasts Family History Father No problems noted. Mother Ovarian cancer Bartolo's disease Maternal Grandfather Atrial fibrillation History of heart artery stent Atherosclerosis Social History (Updated 12/01/22 @ 15:02 by Natalia Padilla) Household Members: Spouse Housing: House Do you presently have visiting nurse or other home services: No Alcohol intake: former Patient Tobacco Use Status: Current everyday Tobacco user Tobacco use type: Cigarette Cigarettes Per Day: 4 Second Hand Smoke Exposure: No service: No Current occupational status: employed Review of Systems Const Denies weakness ENT Denies dizziness Card Denies chest pain, Denies chest pain with activity, Denies syncope, Denies rapid heart rate, Denies pedal edema, Denies edema, Denies leg edema, Denies lightheadedness, Denies palpitations, Denies dyspnea, Denies dyspnea on exertion and Denies orthopnea Resp Denies cough, Denies dyspnea and Denies dyspnea on exertion GI Denies hematochezia and Denies change in stool character Musc Denies abnormal gait, Denies muscle cramps, Denies muscle weakness, Denies numbness, Denies radiating pain into limb and Denies tingling Neuro Denies abnormal gait, Denies dizziness, Denies syncope, Denies numbness, Denies tingling and Denies weakness Endo Denies palpitations Physical Exam Vital Signs: Last Vital Signs Pulse 87 12/01/22 15:00 BP 110/76 12/01/22 15:00 BMI result Body Mass Index 31.2 Const General: comfortable and no acute distress Orientation/consciousness: patient oriented x3 HEENT Other: Unremarkable Head: Yes normal to inspection Neck Neck: Yes normal visual inspection Chest Chest palpation & inspection: normal inspection of the chest Resp Auscultation: clear to auscultation bilaterally Cardio Palpation: normal PMI Heart sounds: S1 normal heart sound present, S2 normal heart sound present, no gallops, no murmurs and no rubs GI Palpation (GI): Soft to palpation Back/Spine/Pelvis Other: unremarkable Skin General skin exam: no rashes or lesions noted Neuro General: patient oriented x3 Extrem General: Yes normal to inspection Psych Mental Status: mental status grossly normal Office Procedures EKG Details: EKG with sinus rhythm at 87/Min; T inversions in the anterior precordial leads; normal MO; corrected QT is 505 milliseconds, slightly prolonged. [id number], Complete Assessment & Plan Assessment & Plan (1) Abnormal EKG: Code(s): R94.31 - Abnormal electrocardiogram [ECG] [EKG] (2) Prolonged QT interval: Code(s): R94.31 - Abnormal electrocardiogram [ECG] [EKG] Plan Cardiac studies reviewed. Her EKG has shown T inversions across the precordium of uncertain reason which has been seen for several years. In the echocardiogram, described to have hyperdynamic LVEF without any wall motion abnormalities. There is mild LVH. It was limited study and hence valvular assessment was not done. Myocardial perfusion imaging study shows normal perfusion. Gated LVEF 62% during stress and 67% during rest. As she continues to have off and on random chest pains, we can do a coronary CTA for further evaluation. Discussed about this and she is agreeable. Appropriate form completed. With regard to QT interval, she has had slight prolongation going back as much as 2011. Caution with QT prolonging drugs. Discussed about this today and also wrote in paper and give it to her. Advised to discuss that with her PCP. With regard to the question of stroke, CT was initially positive for stroke but she has had 2 MRIs since then and both are negative for stroke. We can see her back after the coronary CTA is completed. Orders: Orders CT Cardiac Coronary Angio Today I25.10 - Atherosclerotic heart disease of cahto coronary artery without angina pectoris Coding Level of Care Code Est Pt Level 4 (52896) Diagnoses Abnormal EKG R94.31 Prolonged QT interval R94.31 CPT Codes EKG - CPT: 36799-[id number], Complete ([id number])
[2022-12-01 15:00] VITALS: BP 110/76; PULSE 87; BMI 31.2
== END 2022-12-01 15:20 | disposition home or self-care (01) ==
PROVIDERS: PCP Family Medicine; Referring Provider Family Medicine; Visit Provider Internal Medicine
DX: R94.31 Abnormal electrocardiogram [ECG] [EKG] (principal)
CPT/HCPCS: 93010; 99214

== ENCOUNTER → 2022-12-01 14:50 | Outpatient (BNVA) | payer MEDICARE, MEDICAID, SELFPAY | PROVIDERS: PCP Family Medicine; Referring Provider Family Medicine; Visit Provider Internal Medicine | DX: R94.31 Abnormal electrocardiogram [ECG] [EKG] (principal) | CPT/HCPCS: 93005; 99212 ==